=== PATIENT | male | born 1955 | race Caucasian/White ===

== ENCOUNTER 2024-11-03 12:36 | Emergency (ER) | payer OTHER, SELFPAY ==
[2024-11-03 12:38] VITALS: BP 98/70
[2024-11-03 13:27] LABS: % Basophils 1.5 % (0-2); % Eosinophils 2.7 % (0-6); % Immature Granulocytes 0.5 % (0-0.5); % Lymphocytes 20.9 % (20.5-51.1); % Monocytes 10.2 % (1.7-9.3); % Neutrophils 64.2 % (42.2-75.2); Absolute Basophils 0.1 10^3/uL (0-0.2); Absolute Eosinophils 0.2 10^3/uL (0-0.7); Absolute Lymphocytes 1.7 10^3/uL (1.2-3.4); Absolute Monocytes 0.8 10^3/uL (0.1-0.6); Absolute Neutrophils 5.3 10^3/uL (1.4-6.5); Hematocrit 29.8 % (39.0-52.0); Hemoglobin 9.9 g/dL (13.0-18.0); Mean Corp Hgb Conc. 33.2 g/dL (33.0-37.0); Mean Corpuscular Hgb 31.8 pg (27.0-31.0); Mean Corpuscular Volume 95.8 fL (80.0-94.0); Mean Platelet Volume 9.5 fL (7.4-10.4); Nucleated Red Blood Cells % 0 % (-); Platelet Count 247 10^3/uL (130-400); Red Blood Cell Count 3.11 10^6/uL (4.70-6.10); Red Cell Dist. Width 14.8 % (11.5-14.5); White Blood Cell Count 8.2 10^3/uL (4.8-10.8)
[2024-11-03 13:38] LABS: Urine Albumin 3+ (Neg - Trace); Urine Bilirubin Negative (Negative); Urine Character Bloody (Clear); Urine Color Red; Urine Glucose Negative (Negative); Urine Ketone Negative (Negative); Urine Leukocyte Negative (Negative); Urine Nitrite Negative (Negative); Urine Occult Blood 3+ (Negative); Urine Urobilinogen Negative (Neg - 1+); Urine pH 6.5 (5.0-9.0)
[2024-11-03 13:56] LABS: Urine Squamous Cell 0-2 /LPF (Few)
[2024-11-03 13:57] LABS: Urine Bacteria Moderate (Negative); Urine Red Blood Cell >100 /HPF (0-2)
[2024-11-03 14:23] LABS: PT 12.6 Sec (11.4-14.6)
[2024-11-03 14:32] LABS: Blood Urea Nitrogen 17 mg/dl (9-20); Calcium 9.3 mg/dl (8.4-10.2); Carbon Dioxide 22 mmol/L (22-30); Chloride 107 mmol/L (98-107); Glucose 65 mg/dl (70-99); Potassium 4.8 mmol/L (3.5-5.1); Sodium 139 mmol/L (135-145); eGFR > 60.00
[2024-11-03 16:45] VITALS: BP 108/81
--- NOTE | 2024-11-03 17:12 | ED.GENMED ---
History of Present Illness
General
Chief Complaint: Male Genito-Urinary Symptoms
Source: patient
Exam Limitations: none
Time Seen by Provider: 11/03/24 16:27
Nursing documentation reviewed up to this point in time: agreed with
History of Present Illness
History of Present Illness:
69-year-old male past medical history of A-fib currently on Eliquis, hypertension, diabetes presenting to the emergency department today with concerns of red discolored blood with intermittent blood clots over the past 2 days stopped his Eliquis 2
days ago. He claims that he takes it for atrial fibrillation but is paroxysmal and currently is not in A-fib after ablation in the past. Denies any pain any abdominal pain any flank pain any fevers nausea vomiting
Past History
Past History
ED Past Medical History: Arrthythmia (Atrial fib), HTN and IDDM
ED Past Surgical History: Bowel resection
Social History
Tobacco: Smoker
Alcohol: None
Drug: None
Personal:
Living: alone
Review of Systems
Review of Systems
Allergies reviewed?: Yes
All Other Systems: ROS reviewed and negative except as documented in HPI and ROS
Phy Exam
Physical Exam
Physical Exam:
GENERAL: Alert , in no apparent distress
EYE: pupils equal and reactive
NECK: Supple, no significant adenopathy.
ENT: o/p clr, mmm.
CARDIAC: Regular rate and rhythm .
LUNGS: Clear breath sounds bilaterally, no acute respiratory distress, no wheezes/rales/rhonchi
ABDOMEN: Soft, without focal tenderness, no r/g, no cvat
NEUROLOGICAL: Alert and oriented, no focal neuro deficits
SKIN: Warm and dry, skin intact.
MUSCULOSKELETAL: No edema, well perfused.
PSYCH: Normal and appropriate interaction.
Course
Orders/Labs/Results
Orders:
Orders
11/03/24 12:48
Basic Metabolic Panel Urgent
Complete Blood Count/With Diff Urgent
Prothrombin Time Urgent
Urinalysis Reflex To Culture Urgent
Date Specimen was Collected: 11/03/24
Time Specimen was Collected: 12:42
Urine Microscopic Reflex Cult Urgent
Urine Culture Urgent
HARRISON Source: U
Specimen Description:
Obtained by: Random
Date Specimen was Collected: 11/03/24
Time Specimen was Collected: 12:42
11/03/24 17:11
Bladder Scan- Treatment ONCE
11/03/24 17:16
EKG [Electrocardiogram (*1)] Urgent
Reason for Study: Other
Other Reason for Exam: afib eval
EKG- Treatment ONCE
11/03/24 18:34
Troponin I Urgent
Abnormal Lab Results
11/03/24
12:48
RBC 3.11 L 10^6/uL
(4.70-6.10)
Hgb 9.9 L g/dL
(13.0-18.0)
Hct 29.8 L %
(39.0-52.0)
MCV 95.8 H fL
(80.0-94.0)
MCH 31.8 H pg
(27.0-31.0)
RDW 14.8 H %
(11.5-14.5)
Absolute Monos (auto) 0.8 H 10^3/uL
(0.1-0.6)
Monocytes % 10.2 H %
(1.7-9.3)
Glucose 65 L mg/dl
(70-99)
Ur Occult Blood Reflex 3+ A
(Negative)
Urine RBC >100 A /HPF
(0-2)
Urine Bacteria (Reflex) Moderate A
(Negative)
Urine Albumin (Reflex) 3+ A
(Neg - Trace)
11/03/24 12:48
11/03/24 12:48
Vital Signs
Initial and Last Documented VS:
Initial Vital Signs
Temp Pulse Resp BP Pulse Ox
98.1 F 74 18 98/70 100
11/03/24 12:38 11/03/24 12:38 11/03/24 12:38 11/03/24 12:38 11/03/24 12:38
Last Documented Vital Signs
Temp Pulse Resp BP Pulse Ox
97.8 F 79 18 91/74 97
11/03/24 18:40 11/03/24 18:40 11/03/24 16:45 11/03/24 18:40 11/03/24 18:40
MDM/Problems Addressed
MDM/Problems Addressed:
61-year-old male presenting to the emergency department today with concerns of blood blood clots in his urine. Denies pain denies additional symptoms does take Eliquis stopped this 2 days ago he takes Eliquis for A-fib denies being in A-fib for
extended period of time. His heart rate is very regular on physical examination. Otherwise hemoglobin of 9.9 previously has been in the tens and 11's but last blood work was over a year ago. Otherwise no evidence of urinary tract infection no
abdominal pain. Patient advised for close outpatient follow-up with urology. Return precautions given.
Patient did have an x-ray to confirm patient's not currently in atrial fibrillation. There was some changes from previous EKG but no obvious ischemic changes. He denies adamantly any chest pain shortness of breath or any symptoms potentially
consistent with cardiac issue at this time. Troponin was negative patient will follow-up closely with cardiology.
*Critical Care Note
Total Time (30-74mins, 75-104mins- exclusive of procedures): Not Applicable
ED Attending Note
-
Portions of this chart may have been created with voice recognition software.� Occasional wrong word or��sound alike� substitutions may have occurred due to the inherent limitations of voice recognition software.
Discharge Plan
Departure
Patient Disposition: Home (Routine Discharge)
Date of Disposition: 11/03/24
Time of Disposition: 18:14
Patient with high blood pressure during this ER visit?: No
Condition: Good
Covid-19: Not Applicable
Discharge Problem:
Hematuria, Nonspecific ST-T wave electrocardiographic changes
Instructions: Blood in the Urine (Hematuria), Adult (DC)
Prescriptions:
No Action
metoprolol tartrate 25 MG tablet
12.5 mg PO BID
Pepcid Complete 10-800-165 mg Tablet,Chewable
1 tab PO QPM
amoxicillin-pot clavulanate 875-125 mg Tablet
1 tab PO Q12 Qty: 15 0RF
Eliquis 5 mg Tablet
5 mg PO BID Qty: 0 0RF
insulin aspart U-100 [Novolog FlexPen U-100 Insulin] 100 unit/mL (3 mL) Insulin Pen
13 unit SC AC Qty: 15 0RF
insulin glargine [Lantus Solostar U-100 Insulin] 100 unit/mL (3 mL) insulin pen
32 unit SC HS Qty: 15 0RF
Referrals:
Marcus De La Garza MD [Active] - Follow up in 10 days
Jim Nickerson MD [Active] - Follow up in 5-7 days
Diann Bell PA-C [Family Provider] -
Activity Restrictions/Additional Instructions:
You came to the emergency department today with concerns of hematuria. Please follow-up closely with the urologist. Return to the emergency department any worsening, new or concerning symptoms.
Interventions
Interventions:
*Risk Screen - Suicide Last Done: 11/03/24 12:38
*General Assessment Last Done: 11/03/24 12:38
*Neglect/Abuse Screening Last Done: 11/03/24 12:42
*ED COVID-19 Vaccine History Last Done: 11/03/24 17:37
*Nursing Disposition Last Done: 11/03/24 19:11
ED-Male Genitourinary Assessment Last Done: 11/03/24 17:37
Discharge Date and Time
Discharge Date/Time: 11/03/24 19:12
Print Language: SINHALA
[2024-11-03 18:40] VITALS: BP 91/74
[2024-11-03 19:04] LABS: Troponin I < 0.012 ng/ml
== END 2024-11-03 19:12 | disposition home or self-care (01) ==
LOC: EMR 12:36
PROVIDERS: Emergency Medicine; Physician Assistant; EMERGENCY PHYSICIAN Emergency Medicine; FAMILY PHYSICIAN Physician Assistant Medical
DX: R31.9 Hematuria, unspecified (principal); R94.31 Abnormal electrocardiogram [ECG] [EKG]; I10 Essential (primary) hypertension; F17.200 Nicotine dependence, unspecified, uncomplicated; I48.91 Unspecified atrial fibrillation; E11.9 Type 2 diabetes mellitus without complications
CPT/HCPCS: 99284; 80048; 81003; 81015; 84484; 85025; 85610; 87077; 87086; 87186; 93005

== ENCOUNTER 2024-11-17 19:40 | Inpatient (IN) | payer OTHER, SELFPAY ==
[2024-11-17] VITALS (41 sets, daily range): BP systolic 67–105; BP diastolic 41–72
--- NOTE | 2024-11-17 13:54 | ED.GENMED ---
ED Provider Triage
<Navid Guardado PA-C - Last Filed: 11/17/24 13:55>
-
Patient seen by provider in Triage?: Seen in Triage
69-year-old male presents in referral from cardiac preadmission testing for cardioversion due on the 16 of this month. He notes generalized weakness. He was here at the end of October for UTI and hematuria. His blood pressures were low at
preadmission and he was sent in. He denies chest pain. Denies shortness of breath.
Patient was a calling from [facility]. His pressure over there was 70s over 50s systolic. Will start with labs EKG.
Seen by healthcare provider at triage. Warrants further assessment
History of Present Illness
<Navid Guardado PA-C - Last Filed: 11/17/24 13:55>
General
Chief Complaint: Blood Pressure Problem
Time Seen by Provider: 11/17/24 15:12
<Jessica Fairchild DO - Last Filed: 11/17/24 17:19>
History of Present Illness
History of Present Illness:
69-year-old male with history of A-fib on Eliquis presenting to the emergency department for concern of low blood pressure. Patient is scheduled to get an ablation next week by cardiology. He went for an appointment for preop today and was noted
to have low blood pressure, sent to the ER for further evaluation. He notes generalized fatigue and weakness. Denies chest pain or difficulty breathing. He is on metoprolol for rate control, however otherwise denies underlying high blood
pressure. Patient had laboratory analysis completed prior to my assessment, noted to have a hemoglobin of 6.0. Patient had been seen in 11/03 for hematuria, at that time his hemoglobin was 9.9, has been steadily downtrending over the past year.
He notes that hematuria has been an ongoing issue, is following with urology who believes that he has an infection, was started on Levaquin. He notes that he is still having hematuria. Denies any blood in his stool. Denies any history of
transfusions in the past. Denies additional acute medical complaints
Past History
<Navid Guardado PA-C - Last Filed: 11/17/24 13:55>
Past History
ED Past Medical History: Arrthythmia (Atrial fib), HTN and IDDM
ED Past Surgical History: Bowel resection
Social History
Tobacco: Smoker
Alcohol: None
Drug: None
Personal:
Living: alone
Phy Exam
<Jessica Fairchild DO - Last Filed: 11/17/24 17:19>
Physical Exam
Physical Exam:
General: Dry mucous membrane
HEENT: protecting airway
Neck: appears supple
CV: Normal heart rate, regular rhythm
Resp: No accessory muscle use, no increased work of breathing, lungs clear to auscultation bilaterally
Abd: Soft and non-distended, no tenderness to palpation
Extremities: No deformities, no swelling
Neuro: alert, no focal neurologic deficit
: deferred
Rectal: deferred
Psych: Normal affect
Skin: Intact
Course
<Navid Guardado PA-C - Last Filed: 11/17/24 13:55>
Orders/Labs/Results
Orders:
Orders
11/17/24 13:53
Electrocardiogram (*1) Urgent
Reason for Study: Shortness of Breath
EKG- Treatment ONCE
11/17/24 14:11
Complete Blood Count/With Diff Urgent
Comprehensive Metabolic Panel Urgent
NT-proBNP Urgent
11/17/24 14:57
Type+Screen Urgent
11/17/24 15:26
* Blood Bank Products Urgent
Blood Bank Products: *Packed RBC Leuko(PRBC's)
Quantity: 2
Transfuse Today: Yes
Reason: Anemia
Urinalysis Reflex To Culture Urgent
Abnormal Lab Results
11/17/24 11/17/24
14:11 14:57
RBC 1.90 L 10^6/uL
(4.70-6.10)
Hgb 6.0 L* g/dL
(13.0-18.0)
Hct 17.7 L* %
(39.0-52.0)
MCH 31.6 H pg
(27.0-31.0)
Absolute Lymphs (auto) 0.9 L 10^3/uL
(1.2-3.4)
Neutrophils % 78.1 H %
(42.2-75.2)
Lymphocytes % 12.2 L %
(20.5-51.1)
BUN 22 H mg/dl
(9-20)
Glucose 236 H mg/dl
(70-99)
AST 16 L U/L
(17-59)
Total Protein 5.9 L g/dl
(6.3-8.2)
Crossmatch IS Only See Detail
11/17/24 14:11
11/17/24 14:11
Vital Signs
Initial and Last Documented VS:
Initial Vital Signs
Temp Pulse Resp BP Pulse Ox
98.3 F 83 18 75/50 100
11/17/24 13:49 11/17/24 13:49 11/17/24 13:49 11/17/24 13:49 11/17/24 13:49
Last Documented Vital Signs
Temp Pulse Resp BP Pulse Ox
98.7 F 86 18 78/57 100
11/17/24 16:41 11/17/24 16:41 11/17/24 16:41 11/17/24 16:41 11/17/24 16:00
<Jessica Fairchild DO - Last Filed: 11/17/24 17:19>
Orders/Labs/Results
Orders:
Orders
11/17/24 13:53
Electrocardiogram (*1) Urgent
Reason for Study: Shortness of Breath
EKG- Treatment ONCE
11/17/24 14:11
Complete Blood Count/With Diff Urgent
Comprehensive Metabolic Panel Urgent
NT-proBNP Urgent
11/17/24 14:57
Type+Screen Urgent
11/17/24 15:26
* Blood Bank Products Urgent
Blood Bank Products: *Packed RBC Leuko(PRBC's)
Quantity: 2
Transfuse Today: Yes
Reason: Anemia
Urinalysis Reflex To Culture Urgent
Abnormal Lab Results
11/17/24 11/17/24
14:11 14:57
RBC 1.90 L 10^6/uL
(4.70-6.10)
Hgb 6.0 L* g/dL
(13.0-18.0)
Hct 17.7 L* %
(39.0-52.0)
MCH 31.6 H pg
(27.0-31.0)
Absolute Lymphs (auto) 0.9 L 10^3/uL
(1.2-3.4)
Neutrophils % 78.1 H %
(42.2-75.2)
Lymphocytes % 12.2 L %
(20.5-51.1)
BUN 22 H mg/dl
(9-20)
Glucose 236 H mg/dl
(70-99)
AST 16 L U/L
(17-59)
Total Protein 5.9 L g/dl
(6.3-8.2)
Crossmatch IS Only See Detail
11/17/24 14:11
11/17/24 14:11
Vital Signs
Initial and Last Documented VS:
Initial Vital Signs
Temp Pulse Resp BP Pulse Ox
98.3 F 83 18 75/50 100
11/17/24 13:49 11/17/24 13:49 11/17/24 13:49 11/17/24 13:49 11/17/24 13:49
Last Documented Vital Signs
Temp Pulse Resp BP Pulse Ox
98.7 F 86 18 78/57 100
11/17/24 16:41 11/17/24 16:41 11/17/24 16:41 11/17/24 16:41 11/17/24 16:00
<Jessica Fairchild DO - Last Filed: 11/17/24 17:19>
MDM/Problems Addressed
MDM/Problems Addressed:
69-year-old male with history of A-fib on Eliquis presenting for low blood pressure and fatigue. Vital signs on arrival significant for hypotension.
On exam, patient is resting comfortably, no acute distress. He does have, with suspicion for volume depletion as etiology of hypotension. However, otherwise stable, alert and conversational. Patient's hemoglobin has dropped significantly from
11/03 at which time he was 9.9, now 6.0. Suspected from ongoing hematuria. Patient consented for transfusion. Will start transfusion, and IV fluids. Pending urinalysis with likely plan for urology consultation and admission
17:10 -patient urinated, loraine hematuria. Discussed with urology, recommending CBI with blood and urine cultures. Will obtain. Plan for admission
<Jessica Fairchild DO - Last Filed: 11/17/24 17:19>
*Critical Care Note
Total Time (30-74mins, 75-104mins- exclusive of procedures): 37
comment:
The high probability of a clinically significant, sudden or life threatening deterioration, hypotension with severe anemia, required my full and direct attention, intervention and personal management. The aggregate critical care time was 37 minutes.
This time is in addition to time spent performing reported procedures but includes the following:
[x] Data Review and interpretation
[x] Patient assessment and monitoring of vital signs
[x] Documentation
[x] Medication orders and management
ED Attending Note
<Navid Guardado PA-C - Last Filed: 11/17/24 13:55>
-
Portions of this chart may have been created with voice recognition software.� Occasional wrong word or��sound alike� substitutions may have occurred due to the inherent limitations of voice recognition software.
Discharge Plan
Departure
Prescriptions:
No Action
metoprolol tartrate 25 MG tablet
12.5 mg PO BID
Eliquis 5 mg Tablet
5 mg PO BID Qty: 0 0RF
insulin aspart U-100 [Novolog FlexPen U-100 Insulin] 100 unit/mL (3 mL) Insulin Pen
13 unit SC AC Qty: 15 0RF
insulin glargine [Lantus Solostar U-100 Insulin] 100 unit/mL (3 mL) insulin pen
32 unit SC HS Qty: 15 0RF
levofloxacin [Levaquin] 500 mg Tablet
500 mg PO DAILY
Referrals:
Diann Bell PA-C [Family Provider] -
Interventions
Interventions:
*Risk Screen - Suicide Last Done: 11/17/24 13:49
*General Assessment Last Done: 11/17/24 13:49
*Neglect/Abuse Screening Last Done: 11/17/24 13:49
*ED COVID-19 Vaccine History Last Done: 11/17/24 13:49
ED- Cardiac Assessment Last Done: 11/17/24 16:01
ED- Neurological Assessment Last Done: 11/17/24 16:01
ED- Pulmonary Assessment Last Done: 11/17/24 16:01
Discharge Date and Time
Print Language: THAI
[2024-11-17 14:48] LABS: ALT (SGPT) 16 U/L (0-50); AST (SGOT) 16 U/L (17-59); Albumin 3.7 g/dl (3.5-5.0); Alkaline Phosphatase 71 U/L (38-126); Blood Urea Nitrogen 22 mg/dl (9-20); Calcium 8.6 mg/dl (8.4-10.2); Carbon Dioxide 23 mmol/L (22-30); Chloride 102 mmol/L (98-107); Glucose 236 mg/dl (70-99); Potassium 4.5 mmol/L (3.5-5.1); Sodium 136 mmol/L (135-145); Total Bilirubin 0.3 mg/dl (0.2-1.3); Total Protein 5.9 g/dl (6.3-8.2); eGFR 59.84
[2024-11-17 14:51] LABS: % Basophils 1.1 % (0-2); % Immature Granulocytes 0.3 % (0-0.5); % Lymphocytes 12.2 % (20.5-51.1); % Monocytes 7.3 % (1.7-9.3); % Neutrophils 78.1 % (42.2-75.2); Absolute Basophils 0.1 10^3/uL (0-0.2); Absolute Eosinophils 0.1 10^3/uL (0-0.7); Absolute Lymphocytes 0.9 10^3/uL (1.2-3.4); Absolute Monocytes 0.5 10^3/uL (0.1-0.6); Absolute Neutrophils 5.8 10^3/uL (1.4-6.5); Hematocrit 17.7 % (39.0-52.0); Mean Corp Hgb Conc. 33.9 g/dL (33.0-37.0); Mean Corpuscular Hgb 31.6 pg (27.0-31.0); Mean Corpuscular Volume 93.2 fL (80.0-94.0); Mean Platelet Volume 9.7 fL (7.4-10.4); Nucleated Red Blood Cells % 0 % (-); Platelet Count 227 10^3/uL (130-400); Red Cell Dist. Width 14.5 % (11.5-14.5); White Blood Cell Count 7.4 10^3/uL (4.8-10.8)
[2024-11-17 14:56] LABS: NT-proBNP 130 pg/ml
[2024-11-17 17:51] LABS: Urine Albumin 3+ (Neg - Trace); Urine Bilirubin 1+ (Negative); Urine Character Bloody (Clear); Urine Color Red; Urine Glucose Negative (Negative); Urine Ketone Trace (Negative); Urine Leukocyte Negative (Negative); Urine Nitrite Negative (Negative); Urine Occult Blood 4+ (Negative); Urine Specific Gravity 1.015 (<1.030); Urine Urobilinogen Negative (Neg - 1+); Urine pH 6.5 (5.0-9.0)
[2024-11-17 18:07] LABS: Urine Red Blood Cell >100 /HPF (0-2)
--- NOTE | 2024-11-17 18:13 | W.PN.URO.CBU ---
Today's Communication / Plan
-
keep cbi hand irrigate prn clots
Assessment / Plan
-
hematuia on eliquis will see if can hold eliquois will transfuse and inf blleding subsides willstop cbi in long run need ct scan and ctsto to detremoine etiology of hematuria
Diagnosis
-
Date of Service: November 17, 2024
-
Patient Diagnosis:gross hematuir a of undiagnosed eytiology has a fib and awaithng testing but hgb dropped to 6.6 from 9 and hypotensive cbi started no clots but eliqus today no dysuria frequecty vcx neg
Post Op Day:
Subjective
-
fatigue hematuria
Objective
-
Vital Signs
Temp Pulse Resp BP Pulse Ox
98.7 F 83 30 92/61 98
11/17/24 16:41 11/17/24 17:45 11/17/24 17:00 11/17/24 17:45 11/17/24 17:45
Intake and Output
11/16/24 11/17/24 11/18/24
06:59 06:59 06:59
Intake Total 0 / 0
Balance 0 / 0
Intake:
Blood Product Amount Infused ( 0 / 0
mL)
Packed Rbc Leukoreduced Unit 0 / 0
[id number]
Laboratory Results
11/17/24 14:11
11/17/24 14:11
Review of Systems
-
Constitutional: Fatigue
: Bleeding
Physical Exam
-
General - well developed, well nourished, no acute distress
Chest - clear bilaterally
Abdomen - soft, non-tender, positive bowel sounds, no CVAT, no incisional pain or distention
Genitalia - normal
Rectal - normal
Skin - warm & dry with no rash
Neuro - AOx3, no motor deficits
Extremities - no clubbing, no cyanosis, no edema
Incision - clean, dry
Dressing - clean, dry, intact
Care Review
Data Reviewed
Discussed with: Hospitalist and Nursing
[2024-11-17] MEDS: NSS 1000 IV ×2 (18:50→18:56)
--- NOTE | 2024-11-17 19:00 | W.PN.HOSP.TC ---
Today's Communication/Plan
-
IVF, blood
Assessment / Plan
Assessment / Plan
Gross Hematuria
onset hematuria 10/31, becoming progressively worse past 3 days
Anemia
most likely from hematuria
Weakness and dizziness from acute blood loss anemia
Atrial Fibrillation
was to have ablation with Dr. Carvajal in near future. Pt's superintendent transportation is Eren
Possible UTI on Levaquin
Hypotensive
IV NS given, 2 units of blood will be given
P: admit IMU
IVF, blood to be given
cardio and Urology consults
Full code
See dictated note
Anticipated Discharge: > 48 hours
Subjective/Interval History
-
Date of Service: November 17, 2024
Feels weak and dizzy
Objective Data
-
Labs:
Laboratory Results
11/17/24
14:11
WBC 7.4
Hgb 6.0 L*
Hct 17.7 L*
Plt Count 227
Sodium 136
Potassium 4.5
Chloride 102
Carbon Dioxide 23
BUN 22 H
Creatinine 1.3
Glucose 236 H
Calcium 8.6
Total Bilirubin 0.3
AST 16 L
ALT 16
Alkaline Phosphatase 71
Vital Signs:
Vital Signs
Temp Pulse Resp BP Pulse Ox
98.5 F 79 18 70/51 98
11/17/24 18:29 11/17/24 18:29 11/17/24 18:29 11/17/24 18:29 11/17/24 17:45
I&O
11/16/24 11/17/24 11/18/24
06:59 06:59 06:59
Intake Total 250 / 250
Balance 250 / 250
Review of Systems
-
History Source: Patient and Coordinated Provider
Constitutional: Denies Fever
EENT: Reports No Symptoms Reported
Respiratory: Reports No Symptoms
Cardiac: Reports No Symptoms; Denies Chest Pain
Genitourinary: Reports Bleeding
Neuro: Reports Dizzy and Weakness
Physical Exam
-
General: Well Developed, Well Nourished and No Apparent Distress
HEENT: Normocephalic, Atraumatic and Moist Mucous Membranes
Respiratory: Clear to Auscultation; Negative Wheezes, Rales or Rhonchi
Cardiac: Regular Rhythm and S1/S2
GI: Soft, Nontender and Nondistended
Musculoskeletal: No Clubbing, No Cyanosis and No Edema
Neuro: Awake, Alert and Oriented
[2024-11-18] VITALS (49 sets, daily range): BP systolic 60–131; BP diastolic 48–92; BMI 27.9
[2024-11-18 06:56] LABS: Blood Urea Nitrogen 16 mg/dl (9-20); Calcium 7.7 mg/dl (8.4-10.2); Carbon Dioxide 22 mmol/L (22-30); Chloride 107 mmol/L (98-107); Estimated Creatinine Clearance 78 ml/min; Glucose 141 mg/dl (70-99); Potassium 4.3 mmol/L (3.5-5.1); Sodium 136 mmol/L (135-145); eGFR > 60.00
[2024-11-18 07:42] LABS: Hematocrit 22.3 % (39.0-52.0); Hemoglobin 7.4 g/dL (13.0-18.0); Mean Corp Hgb Conc. 33.2 g/dL (33.0-37.0); Mean Corpuscular Hgb 31.1 pg (27.0-31.0); Mean Corpuscular Volume 93.7 fL (80.0-94.0); Mean Platelet Volume 9.9 fL (7.4-10.4); Platelet Count 207 10^3/uL (130-400); Red Blood Cell Count 2.38 10^6/uL (4.70-6.10); Red Cell Dist. Width 14.9 % (11.5-14.5); White Blood Cell Count 9.1 10^3/uL (4.8-10.8)
--- NOTE | 2024-11-18 07:42 | EDRN ---
Urology and Cardiology consults notified this am.
--- NOTE | 2024-11-18 07:44 | EDRN ---
Dr. Castillo TT's about diet order to start at dinner today for clarification of order.
--- NOTE | 2024-11-18 07:45 | EDRN ---
Dr. Castillo wrote he is correct ing order.
--- NOTE | 2024-11-18 07:50 | W.PN.HOSP.TC ---
Today's Communication/Plan
-
transfuse 1 more unit
check Fe studies
check stool for C.Diff
Assessment / Plan
Assessment / Plan
Gross Hematuria
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
Anemia
most likely from hematuria. Was given 2 units PRBC Hgb 6.0-->7.4
will order 1 more unit
Weakness and dizziness from acute blood loss anemia
Atrial Fibrillation
was to have ablation with Dr. Carvajal in near future. Pt's launderer hand is Eren. Tele appears to be NSR
Possible UTI on Levaquin
Hypotensive
IV NS given, 2 units of blood will be given
IDDM
continue standing Lantus, but change ac insulin to SSI
Diarrhea
stool for C.Diff ordered
P: admit IMU
IV to continue, will order another unit of blood to be given
cardio and Urology consults
Full code
Anticipated Discharge: > 48 hours
Subjective/Interval History
-
Date of Service: November 18, 2024
Generally feels better, having liquidy diarrhea
Objective Data
-
Labs:
Laboratory Results
11/18/24
06:01
WBC 9.1
Hgb 7.4 L D
Hct 22.3 L
Plt Count 207
Sodium 136
Potassium 4.3
Chloride 107
Carbon Dioxide 22
BUN 16
Creatinine 1.0
Glucose 141 H
Calcium 7.7 L
Vital Signs:
Vital Signs
Temp Pulse Resp BP Pulse Ox
98.4 F 81 22 84/67 95
11/18/24 04:18 11/18/24 07:00 11/18/24 06:15 11/18/24 07:00 11/18/24 07:00
I&O
11/17/24 11/18/24 11/19/24
06:59 06:59 06:59
Intake Total 6000 / 6000
Output Total 87543 / 55388
Balance -4600 / -4600
Review of Systems
-
History Source: Patient and Coordinated Provider
Constitutional: Denies Fever
EENT: Reports Other (nasal congestion)
Respiratory: Reports No Symptoms
Cardiac: Reports No Symptoms; Denies Chest Pain
Abdomen/GI: Reports Diarrhea
Genitourinary: Reports Bleeding
Neuro: Reports Dizzy and Weakness
Physical Exam
-
General: Well Developed, Well Nourished and No Apparent Distress
HEENT: Normocephalic, Atraumatic and Moist Mucous Membranes
Respiratory: Clear to Auscultation; Negative Wheezes, Rales or Rhonchi
Cardiac: Regular Rhythm and S1/S2
GI: Soft, Nontender and Nondistended
Musculoskeletal: No Clubbing, No Cyanosis and No Edema
Neuro: Awake, Alert and Oriented
[2024-11-18] MEDS: NSS 1000 IV ×2 (08:15→14:16)
[2024-11-18 08:28] LABS: Iron 35 ug/dl (49-181)
[2024-11-18] MEDS: LEVAQUIN 500 MG PO (08:28)
[2024-11-18 08:34] LABS: Glucose - Point of Care 174 mg/dl (70-99)
[2024-11-18] MEDS: LOPRESSOR PO ×2 (08:34→20:09)
[2024-11-18 08:37] LABS: Percent Saturation 9 % (20-50); Total Iron Binding Capacity 377 ug/dl (261-462)
[2024-11-18 09:03] LABS: Ferritin 17.3 ng/ml (17.9-464.0)
[2024-11-18] MEDS: NOVOLOG FLEXPEN-MODERATE RESISTANCE 1 UNITS SC ×2 (09:16→14:17)
[2024-11-18 09:34] LABS: Folate 5.2 ng/ml (2.76-20); Vitamin B12 830 pg/ml (239-931)
--- NOTE | 2024-11-18 10:15 | EDRN ---
Pt ate 100% of his diet tray.
--- NOTE | 2024-11-18 10:57 | EDRN ---
Unit # [id number] started at 10:40. Had to use pink sheet as product # would not scan.
--- NOTE | 2024-11-18 11:25 | EDRN ---
Blood bank notified that product # would not scan and using pink sheet to infuse the blood.
--- NOTE | 2024-11-18 12:13 | W.PN.URO.CBU ---
Today's Communication / Plan
-
hand irrigae prn clots ir sluggish flow
Assessment / Plan
-
hematuia on eliquis will see if can hold eliquois will transfuse and inf blleding subsides willstop cbi in long run need ct scan and ctsto to detremoine etiology of hematuria
Diagnosis
-
Date of Service: November 18, 2024
-
Patient Diagnosis:
Post Op Day:
Patient Diagnosis:gross hematuir a of undiagnosed eytiology has a fib and awaithng testing but hgb dropped to 6.6 from 9 and hypotensive cbi started no clots but eliqus today no dysuria frequecty vcx neg
Post Op Day:
Subjective
-
still hematuria
Objective
-
Vital Signs
Temp Pulse Resp BP Pulse Ox
99 F 84 20 87/65 95
11/18/24 10:55 11/18/24 10:55 11/18/24 10:55 11/18/24 10:55 11/18/24 10:55
Intake and Output
11/17/24 11/18/24 11/19/24
06:59 06:59 06:59
Intake Total 6000 / 6000
Output Total 88886 / 60571 300 / 300
Balance -4600 / -4600 -300 / -300
Intake:
IV fluids (Total) 1000 / 1000
NSS 1000 / 1000
Amount instilled into Urinary 4500 / 4500
Drain (Total)
Blood Product Amount Infused ( 500 / 500
mL)
Packed Rbc Leukoreduced Unit 250 / 250
[id number]
Packed Rbc Leukoreduced Unit 250 / 250
[id number]
Output:
Urinary Drain Output (Total) 3800 / 3800
True Urine Output from CBI 6800 / 6800 300 / 300
Laboratory Results
11/18/24 06:01
Review of Systems
-
: Bleeding
Physical Exam
-
General - well developed, well nourished, no acute distress
Chest - clear bilaterally
Abdomen - soft, non-tender, positive bowel sounds, no CVAT, no incisional pain or distention
Genitalia - normal
Rectal - normal
Skin - warm & dry with no rash
Neuro - AOx3, no motor deficits
Extremities - no clubbing, no cyanosis, no edema
Incision - clean, dry
Dressing - clean, dry, intact
Care Review
Data Reviewed
Discussed with: Cardiology and Hospitalist
--- NOTE | 2024-11-18 12:37 | EDRN ---
Attempting to call report to IMU at this time.
--- NOTE | 2024-11-18 12:39 | EDRN ---
RN who will be caring for pt unable to take verbal report. Sending written report at this time per Hilaria who had answered the phone and said she will call me w/ any questions.
--- NOTE | 2024-11-18 13:30 | EDRN ---
Sifuentes emptied at this time of 1550 of untrue urine (urine + CBI) and IMU called w/ message left for RN at this time. Pt also removed from bedpan and had very loose brown yellow BM on bedpan. Pericare given and skin barrier to buttocks.
--- NOTE | 2024-11-18 13:31 | W.PN.CD ---
Today's Communication / Plan
-
Dictated
Hold Eliquis
Resume Eliquis when OK with urology
Not clear we have EKG/tele documentation of AFib/flutter recurrence since ablation, but pt felt he was in AFib Nov 14, 2024
Impression / Plan
-
Severe Anemia from acute blood loss/bleeding
Pathologic severe hematuria
Hx of persistent AFib and AFlutter
- Ablation 06/24/2020
- Suspected recurrence and was planned to have MARCELO/DCCV
- Only sinus so far
- [id number] is at least 4 (DM, HTN, age1, vascular disease)
HTN
DM, type 2
Carotid vascular disease/subclavian stenosis
Subjective:
No CP or palps
Data:
Echo 06/07/2023: LVEF 65-70%, AoV sclerosis, Asc Ao 3.9 cm
Felicia Nuc Stress 06/2019: Small/medium area of mild/mod fixed defects inf and apical most c/w soft tissue attenuation
.
Physical Exam
Vital Signs/Labs
Vital Signs
Temp Pulse Resp BP Pulse Ox
98.7 F 76 16 109/64 98
11/18/24 12:45 11/18/24 12:45 11/18/24 12:45 11/18/24 12:45 11/18/24 12:45
11/17/24 11/18/24 11/19/24
06:59 06:59 06:59
Actual Weight 92 kg
11/18/24 06:01
11/17/24
14:11
[id number] Pept 130
Data Reviewed
-
Date of Service: November 18, 2024
[2024-11-18 13:44] LABS: Glucose - Point of Care 193 mg/dl (70-99)
[2024-11-18 16:45] LABS: Hematocrit 23.9 % (39.0-52.0); Hemoglobin 7.9 g/dL (13.0-18.0)
[2024-11-18 17:49] LABS: Glucose - Point of Care 200 mg/dl (70-99)
--- NOTE | 2024-11-18 18:16 | PTCARENOTE ---
Received into [id number] at 1400. IMU monitors placed, SR on tele VS documented. CBI infusing red thin punch colored urine few clots noted. Denies any pain. Meal covered with Novolog. IVF infusing. AAOx3, LC, CHG bathed. Left ear and RCW skin CA
areas will note in wound care. Large full thickness wound area on left mid back. Oriented to room. No other needs made known.
[2024-11-18] MEDS: NOVOLOG FLEXPEN-MODERATE RESISTANCE 3 UNITS SC (18:59)
[2024-11-18 21:44] LABS: Glucose - Point of Care 162 mg/dl (70-99)
[2024-11-18] MEDS: LANTUS 0.32 UNITS SC (21:44)
--- NOTE | 2024-11-18 22:33 | PTCARENOTE ---
Report received from previous shift RN 1845. Pt in bed, AAO3, no complaints offered. Pt is [place], hearing aid in place. Denies pain. Pt reports oc nonproductive cough, denies SOB, pox 97-99% on room air, lung sounds are decreased throughout. Telemetry
rhythm reveals SR, HR 80's, no edema noted, palpable peripheral pulses present, knee high SCDs placed per order. +BS, abdomen soft nontender, reports good appetite, tolerating 1800 ADA diet. Pt has chronic loose stools, using bedpan intermittently.
3-way Sifuentes catheter in place with CBI infusing, punch colored urine with some small clots. Skin as documented. L hand int flushed and patent, capped. R FA int with IVF per order. Safe environment maintained, call frankel within reach. Will monitor
closely.
[2024-11-19] VITALS (35 sets, daily range): BP systolic 74–121; BP diastolic 59–94; BMI 28.1
[2024-11-19] MEDS: NSS 1000 IV ×3 (02:08→21:25)
[2024-11-19 05:24] LABS: Hemoglobin 7.7 g/dL (13.0-18.0); Mean Corp Hgb Conc. 33.5 g/dL (33.0-37.0); Mean Corpuscular Hgb 30.6 pg (27.0-31.0); Mean Corpuscular Volume 91.3 fL (80.0-94.0); Mean Platelet Volume 9.5 fL (7.4-10.4); Platelet Count 197 10^3/uL (130-400); Red Blood Cell Count 2.52 10^6/uL (4.70-6.10); Red Cell Dist. Width 15.2 % (11.5-14.5); White Blood Cell Count 10.1 10^3/uL (4.8-10.8)
[2024-11-19 05:43] LABS: Blood Urea Nitrogen 13 mg/dl (9-20); Calcium 7.9 mg/dl (8.4-10.2); Carbon Dioxide 20 mmol/L (22-30); Chloride 107 mmol/L (98-107); Estimated Creatinine Clearance 71 ml/min; Glucose 121 mg/dl (70-99); Sodium 134 mmol/L (135-145); eGFR > 60.00
[2024-11-19 08:23] LABS: Glucose - Point of Care 146 mg/dl (70-99)
[2024-11-19] MEDS: LEVAQUIN 500 MG PO (09:11)
[2024-11-19] MEDS: NOVOLOG FLEXPEN-MODERATE RESISTANCE SC ×3 (09:11→18:21)
[2024-11-19] MEDS: LOPRESSOR 12.5 MG PO (09:11)
--- NOTE | 2024-11-19 09:37 | CM ---
Patient with reyes and CBI for hematuria, who is s/p transfusions for anemia. Room air. Receiving IVF, PO Abx. Per MD notes 11/18: Weakness and dizziness from acute blood loss anemia. PT/OT Evals pending.
Met with patient who resides alone in a 1st floor apartment, no steps.
He was independent in ADLs and ambulation, active and working.
He denies any falls at home.
DME - glucometer, BP cuff
[facility]
PCP - Diann Bell
Pharmacy - [facility] [place]
Patient would benefit from PT Eval---> message to Dr Castillo.
Plan follow up after seen by PT/OT.
[2024-11-19 10:43] LABS: Glycohemoglobin (HgbA1c) 5.4 % (4.0-5.6)
--- NOTE | 2024-11-19 11:15 | W.PN.CD ---
Today's Communication / Plan
-
Hold Eliquis
Resume Eliquis when OK with urology
Still in sinus
Impression / Plan
-
Severe anemia from acute blood loss/bleeding
- So far 3 U PRBC have been transfused
Pathologic severe hematuria
- Urology involved
Hx of persistent AFib and AFlutter
- Ablation 06/24/2020
- Suspected recurrence and was planned to have MARCELO/DCCV
- Only sinus so far
- [id number] is at least 4 (DM, HTN, age1, vascular disease)
HTN
DM, type 2
Carotid vascular disease/subclavian stenosis
Subjective:
No CP or palps
Data:
Echo 06/07/2023: LVEF 65-70%, AoV sclerosis, Asc Ao 3.9 cm
Felicia Nuc Stress 06/2019: Small/medium area of mild/mod fixed defects inf and apical most c/w soft tissue attenuation
.
Physical Exam
Vital Signs/Labs
Vital Signs
Temp Pulse Resp BP Pulse Ox
97.8 F 85 20 121/72 99
11/19/24 07:45 11/19/24 08:01 11/19/24 08:01 11/19/24 08:01 11/19/24 08:01
11/18/24 11/19/24 11/20/24
06:59 06:59 06:59
Actual Weight 92 kg 86.4 kg
11/19/24 04:56
11/19/24 04:56
11/17/24
14:11
Cai-F-Hlvfwwhadnt Pept 130
Physical Exam
Constitutional: No acute distress
EENT: Anicteric
Cardiovascular: Rhythm & rate is regular
Respiratory: Respiratory effort normal
GI: Distention absent
Data Reviewed
-
Date of Service: November 19, 2024
[2024-11-19 12:07] LABS: Glucose - Point of Care 141 mg/dl (70-99)
--- NOTE | 2024-11-19 12:32 | W.PN.URO.CBU ---
Today's Communication / Plan
-
KEEP FIOLEY HAND IRRIGATE PRN CLOTS OR SLOW FLOW
Assessment / Plan
-
hematuia SLOWING DOWN HGB STABLE ALEJANDRO REEVALUATE BUT ONCE RBXC STOP WILL REMOVE HE AMND ATTEMPT CT SCAN TO SEE ETIOLOGU OF FBLEEDING IE BPH UTI OR BLADDER CANCER EYTC
Diagnosis
-
Date of Service: November 19, 2024
-
Patient Diagnosis:
Post Op Day:
Patient Diagnosis:
Post Op Day:
Patient Diagnosis:gross hematuir a of undiagnosed eytiology has a fib and awaithng testing but hgb dropped to 6.6 from 9 and hypotensive cbi started no clots but eliqus today no dysuria frequecty vcx neg
Post Op Day:
Subjective
-
STILL FATIGUED
Objective
-
Vital Signs
Temp Pulse Resp BP Pulse Ox
97.8 F 73 16 86/74 97
11/19/24 07:45 11/19/24 11:13 11/19/24 11:13 11/19/24 11:13 11/19/24 11:26
Intake and Output
11/18/24 11/19/24 11/20/24
06:59 06:59 06:59
Intake Total 6000 / 6000 1520 / 1520
Output Total 69841 / 52735 3075 / 3075
Balance -4600 / -4600 -1555 / -1555
Intake:
Oral fluids 240 / 240
IV fluids (Total) 1000 / 1000 1280 / 1280
NSS 1000 / 1000
Amount instilled into Urinary 4500 / 4500
Drain (Total)
Blood Product Amount Infused ( 500 / 500
mL)
Packed Rbc Leukoreduced Unit 250 / 250
[id number]
Packed Rbc Leukoreduced Unit 250 / 250
[id number]
Output:
Urinary Drain Output (Total) 3800 / 3800
True Urine Output from CBI 6800 / 6800 3075 / 3075
Other:
Number of unmeasured liquid
stools
Rectum 1 1
Laboratory Results
11/19/24 04:56
11/19/24 04:56
Review of Systems
-
: Bleeding
Physical Exam
-
General - well developed, well nourished, no acute distress
Chest - clear bilaterally
Abdomen - soft, non-tender, positive bowel sounds, no CVAT, no incisional pain or distention
Genitalia - normal
Rectal - normal
Skin - warm & dry with no rash
Neuro - AOx3, no motor deficits
Extremities - no clubbing, no cyanosis, no edema
Incision - clean, dry
Dressing - clean, dry, intact
Care Review
Data Reviewed
Discussed with: Hospitalist and Nursing
[2024-11-19] MEDS: FERRLECIT 110 MG IV (14:21)
--- NOTE | 2024-11-19 15:26 | W.PN.HOSP.TC ---
Today's Communication/Plan
-
transfuse 1 unit
continue IV NS
Levophed if BP drifts down <90 systolic
Assessment / Plan
Assessment / Plan
Gross Hematuria
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 Eliquis remains on hold. once bleeding stops will require urologic evaluation as to etiology. ?infectious
Anemia
most likely from hematuria. Was given 2 units PRBC Hgb 6.0-->7.4
will order 1 more unit Hgb 7.7-->will order 4th unit
Weakness and dizziness from acute blood loss anemia
Atrial Fibrillation
was to have a MARCELO cardioversion with Dr. Carvajal in near future. Pt's certified green building engineer is Eren. Tele demonstrates to be NSR. Input from cardio appreciated. He had a catheter ablation June 2020.
Possible UTI on Levaquin
On 11/03 Ur micro demonstrated Enterococcus sens to Levaquin
Blood Cx 11/17 NTD
Hypotensive
IV NS given, 3 units of blood has been given, will order 1 unit to be given now 11/19. Will order Levophed if bp drops below 90 sys to be given. Reviewed with nursing
IDDM
continue standing Lantus, but change ac insulin to SSI
glu has been well controlled at 141-200 since admission
a1c 5.4%
Diarrhea
stool for C.Diff negative, concern as pt has been on abx, only had one episode of diarrhea today
P: admit IMU
cardio and Urology consults noted and appreciated
Full code
Anticipated Discharge: > 48 hours
Subjective/Interval History
-
Date of Service: November 19, 2024
Awake, alert
Objective Data
-
Labs:
Laboratory Results
11/19/24
04:56
WBC 10.1
Hgb 7.7 L
Hct 23.0 L
Plt Count 197
Sodium 134 L
Potassium 4.0
Chloride 107
Carbon Dioxide 20 L
BUN 13
Creatinine 1.0
Glucose 121 H
Calcium 7.9 L
Vital Signs:
Vital Signs
Temp Pulse Resp BP Pulse Ox
98.5 F 71 17 78/60 96
11/19/24 12:20 11/19/24 14:00 11/19/24 14:00 11/19/24 14:00 11/19/24 14:00
I&O
11/18/24 11/19/24 11/20/24
06:59 06:59 06:59
Intake Total 6000 / 6000 1520 / 1520
Output Total 92364 / 34464 3075 / 3075
Balance -4600 / -4600 -1555 / -1555
Review of Systems
-
History Source: Patient and Coordinated Provider
Constitutional: Denies Fever
EENT: Reports Other (nasal congestion)
Respiratory: Reports No Symptoms
Cardiac: Reports No Symptoms; Denies Chest Pain
Abdomen/GI: Reports Diarrhea
Genitourinary: Reports Bleeding (still with gross hematuria)
Neuro: Reports Dizzy and Weakness
Physical Exam
-
General: Well Developed, Well Nourished and No Apparent Distress
HEENT: Normocephalic, Atraumatic and Moist Mucous Membranes
Respiratory: Clear to Auscultation; Negative Wheezes, Rales or Rhonchi
Cardiac: Regular Rhythm and S1/S2
GI: Soft, Nontender and Nondistended
Genito-urinary: No Costovertebral Tender
Musculoskeletal: No Clubbing, No Cyanosis and No Edema
Skin: Warm, Dry and Rash
Neuro: Awake, Alert and Oriented
--- NOTE | 2024-11-19 17:29 | PTCARENOTE ---
Patient continues on CBI BAG # 14, urine punch colored with clots. Hand irrigated multiple times due to clots. Blood pressures soft today. Levo ordered this afternoon if SBP less then 90. Patient currently getting 1 unit of PRBC's. Patient AAOx3
pleasant. Using call frankel appropriately. Patient had to loose BM's on bedpan today.
[2024-11-19 18:04] LABS: Glucose - Point of Care 127 mg/dl (70-99)
--- NOTE | 2024-11-19 18:39 | PTCARENOTE ---
Patient received one unit PRBC's without incident. Vital signs stable ( see work list).
[2024-11-19] MEDS: LOPRESSOR PO (20:23)
[2024-11-19] MEDS: LANTUS 0.32 UNITS SC (21:22)
[2024-11-19 21:33] LABS: Glucose - Point of Care 166 mg/dl (70-99)
--- NOTE | 2024-11-19 21:34 | PTCARENOTE ---
Pt continues with CBI through 3-way indwelling catheter draining punch colored to red output with visible clots. Upon receiving pt, this RN noticed that reyes bag was not clamped closed and urine was draining onto the floor, so output for bag # 15
will not be accurate. Pt is able to alert this RN that he feels pressure in his genital area and has noticed that the urine flow is slowing or stopped, prompting this RN to hand irrigate catheter producing some small blood clots. Draining resumed
post irrigation. This RN will continue to monitor throughout shift with assist of pt's report of discomfort. Call frankel within reach. HS lopressor held d/t admin parameters. VSS at this time, but will continue to monitor closely throughout shift d/t
recent low BPs.
[2024-11-20] VITALS (63 sets, daily range): BP systolic 70–122; BP diastolic 47–79; BMI 27.7
--- NOTE | 2024-11-20 01:00 | PTCARENOTE ---
CBI continues with red punch colored drainage. Very small clots visible in tubing. Pt c/o feeling abdominal pressure and seeing the flow slow down which prompted this RN to hand irrigate per MD orders. Some very small clots removed, but flow is not
obstructed. Tubing reconnected and CBI flow rate adjusted. Catheter continues to produce red punch colored drainage. Pt intermittently c/o severe, sudden pain/discomfort in genital area, again asks this RN to hand irrigate catheter, however catheter
flow is intact and hand irrigation is not necessary at this time. CBI bag #16 with 3900ml total output, see documentation. UNDERWRITING SUPPORT MANAGER contacted regarding pt pain. Awaiting orders
[2024-11-20] MEDS: LEVOPHED 250 IV (01:01)
--- NOTE | 2024-11-20 01:14 | PTCARENOTE ---
levophed started per orders for SBP 70s.
[2024-11-20 04:22] LABS: % Eosinophils 3.4 % (0-6); % Immature Granulocytes 0.4 % (0-0.5); % Lymphocytes 13.6 % (20.5-51.1); % Monocytes 10.2 % (1.7-9.3); % Neutrophils 71.4 % (42.2-75.2); Absolute Basophils 0.1 10^3/uL (0-0.2); Absolute Eosinophils 0.4 10^3/uL (0-0.7); Absolute Immature Granulocytes 0.1 10^3/uL (0-0.05); Absolute Lymphocytes 1.5 10^3/uL (1.2-3.4); Absolute Monocytes 1.2 10^3/uL (0.1-0.6); Absolute Neutrophils 8.1 10^3/uL (1.4-6.5); Hematocrit 25.9 % (39.0-52.0); Hemoglobin 8.7 g/dL (13.0-18.0); Mean Corp Hgb Conc. 33.6 g/dL (33.0-37.0); Mean Corpuscular Hgb 30.3 pg (27.0-31.0); Mean Corpuscular Volume 90.2 fL (80.0-94.0); Mean Platelet Volume 9.9 fL (7.4-10.4); Nucleated Red Blood Cells % 0 % (-); Platelet Count 210 10^3/uL (130-400); Red Blood Cell Count 2.87 10^6/uL (4.70-6.10); Red Cell Dist. Width 14.7 % (11.5-14.5); White Blood Cell Count 11.3 10^3/uL (4.8-10.8)
[2024-11-20 04:45] LABS: Blood Urea Nitrogen 12 mg/dl (9-20); Calcium 7.8 mg/dl (8.4-10.2); Carbon Dioxide 18 mmol/L (22-30); Chloride 108 mmol/L (98-107); Estimated Creatinine Clearance 71 ml/min; Glucose 111 mg/dl (70-99); Sodium 136 mmol/L (135-145); eGFR > 60.00
[2024-11-20 07:44] LABS: Glucose - Point of Care 131 mg/dl (70-99)
--- NOTE | 2024-11-20 08:19 | PTCARENOTE ---
Assumed care of patient this AM. CBI bag #20-urine punch color with small clots. Order to hand irrigate PRN. Dr. Shaffer to see patient. Continue treatment as ordered. Levo drip started this morning for SPB less then 90. Levo currently at 1
mcg/3.7 mls/hr BP 92/68. Patient eating breakfast in bed. Reports not sleeping much last night. Denies feeling light headed or dizzy. Denies and pain or bladder discomfort at this time. Will continue to monitor frequently.
--- NOTE | 2024-11-20 11:08 | W.PN.CD ---
Today's Communication / Plan
-
Hold Eliquis
Resume Eliquis when OK with urology
Still in sinus
I suspect he will benefit from more PRBC transfusion
Impression / Plan
-
Severe anemia from acute blood loss/bleeding
- So far 3 =>4 U PRBC have been transfused
- Still with significant hematuria and BP below his low baseline at times => more blood will be beneficial in light of active bleeding
Pathologic severe hematuria
- Urology involved
Hx of persistent AFib and AFlutter
- Ablation 06/24/2020
- Suspected recurrence and was planned to have MARCELO/DCCV
- Only sinus so far
- [id number] is at least 4 (DM, HTN, age1, vascular disease)
HTN
DM, type 2
Carotid vascular disease/subclavian stenosis
Subjective:
No CP or palps
Data:
Echo 06/07/2023: LVEF 65-70%, AoV sclerosis, Asc Ao 3.9 cm
Felicia Nuc Stress 06/2019: Small/medium area of mild/mod fixed defects inf and apical most c/w soft tissue attenuation
.
Physical Exam
Vital Signs/Labs
Vital Signs
Temp Pulse Resp BP Pulse Ox
98.1 F 67 18 92/68 96
11/20/24 07:05 11/20/24 08:00 11/20/24 08:00 11/20/24 08:00 11/20/24 08:15
11/19/24 11/20/24 11/21/24
06:59 06:59 06:59
Actual Weight 86.4 kg 85 kg
11/20/24 03:53
11/20/24 03:53
11/17/24
14:11
Qrb-Z-Hgwczxrzkmn Pept 130
Physical Exam
Constitutional: No acute distress
Cardiovascular: Rhythm & rate is regular and Pedal edema is absent
Respiratory: Respiratory effort normal and Lungs clear to auscul.
GI: Soft and Distention absent
Neuro/Psych: AO x 3
Data Reviewed
-
Date of Service: November 20, 2024
--- NOTE | 2024-11-20 11:12 | W.PN.UPDATE ---
Addendum entered and electronically signed by Jim Nickerson MD 11/20/24 12:40:
CT Urogram reviewed => indicative of large 6 cm collection of organized clot and suspected bladder tumor.
Eliquis held x72 hrs.
Tentative plan for OR 11/22 for TURBT pending further washout of Eliquis, continued CBI to further reduce hematuria, and PRBC transfusions prn.
D/w Hospitalist.
Original Note:
Update Note
Progress Note Update
Gross hematuria
Acute blood loss anemia
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
Cystoscopy was scheduled but cancelled 1 week ago by patient.
Hgb 6.0 on presentation w/ hypotension.
Eliquis held x72 hrs.
s/p 5u PRBCs (unit 5 being given today).
Still hypotensive w/o pressor requirement.
Sifuentes catheter draining bloody urine w/o clots or obstruction.
Plan:
- Maintain CBI to keep urine flowing and light
- Continue holding Eliquis to extend washout period
- Transfuse as needed per Hospitalist
- CT imaging w/ IV contrast when stable
- If hematuria does not improve w/n 24 hrs, may require cystoscopy/fulguration/possible TURBT
Discussed plan of care w/ Hospitalist.
[2024-11-20] MEDS: NOVOLOG FLEXPEN-MODERATE RESISTANCE SC ×2 (11:41→14:18)
[2024-11-20] MEDS: LOPRESSOR PO ×2 (11:43→19:31)
--- NOTE | 2024-11-20 12:42 | W.PN.URO.CBU ---
Today's Communication / Plan
-
alex reeval in op room once hemodynamically stable
Assessment / Plan
-
hematuia SLOWING DOWN HGB STABLE has bladder mass will await utntil stable then team will do turbt
Diagnosis
-
Date of Service: November 20, 2024
-
Patient Diagnosis:
Post Op Day:
Patient Diagnosis:
Post Op Day:
Patient Diagnosis:
Post Op Day:
Patient Diagnosis:gross hematuir a of undiagnosed eytiology has a fib and awaithng testing but hgb dropped to 6.6 from 9 and hypotensive cbi started no clots but eliqus today no dysuria frequecty vcx neg
Post Op Day:
Subjective
-
continued hematuiora
Objective
-
Vital Signs
Temp Pulse Resp BP Pulse Ox
98.1 F 81 12 87/66 94
11/20/24 11:23 11/20/24 11:30 11/20/24 11:30 11/20/24 11:30 11/20/24 11:30
Intake and Output
11/19/24 11/20/24 11/21/24
06:59 06:59 06:59
Intake Total 1520 / 1520 2650 / 2650
Output Total 3075 / 3075 2225 / 222 400 / 400
Balance -1555 / -1555 425 / 425 -400 / -400
Intake:
Oral fluids 240 / 240 1200 / 1200
IV fluids (Total) 1280 / 1280 1200 / 1200
Blood Product Amount Infused ( 250 / 250
mL)
Packed Rbc Leukoreduced Unit 250 / 250
[id number]
Output:
True Urine Output from CBI 3075 / 3075 2225 / 2225 400 / 400
Other:
Number of unmeasured liquid
stools
Rectum 1 1
Laboratory Results
11/20/24 03:53
11/20/24 03:53
Review of Systems
-
: Bleeding
Physical Exam
-
General - well developed, well nourished, no acute distress
Chest - clear bilaterally
Abdomen - soft, non-tender, positive bowel sounds, no CVAT, no incisional pain or distention
Genitalia - normal
Rectal - normal
Skin - warm & dry with no rash
Neuro - AOx3, no motor deficits
Extremities - no clubbing, no cyanosis, no edema
Incision - clean, dry
Dressing - clean, dry, intact
Care Review
Data Reviewed
Discussed with: Hospitalist and Nursing
CT Scan: Image Pers Reviewed
[2024-11-20] MEDS: LEVAQUIN 500 MG PO (12:46)
[2024-11-20] MEDS: FERRLECIT 110 MG IV (12:48)
[2024-11-20] MEDS: FLUSH (NSS) 1 FLUSH IV (12:49)
[2024-11-20 13:30] LABS: Glucose - Point of Care 131 mg/dl (70-99)
--- NOTE | 2024-11-20 14:21 | PTCARENOTE ---
Patient currently receiving one unit PRBC's as per MD order. Hemoglobin this AM 8.8. CBI running at a fast rate bag #20. Bloody urine with small clots. Patient experiencing intermittent bladder spasms. Patient continuing with loose/liquid stools
x2 today. Multiple stools overnight. Levo drip is currently infusing at 3mcg/11.3 mls/hr to keep SBP >90. SR on monitor HR 70-90. sP02 96% RA. Diet resumed for lunch. Patient to be NPO at midnight as per Dr. Rizzo. Call frankel in reach.
--- NOTE | 2024-11-20 14:46 | W.PN.HOSP.TC ---
Today's Communication/Plan
-
Assessment / Plan
Assessment / Plan
NAD
Scleral Anicteric
MMM
No JVD
CTABL
RRR, S1/S2
Soft, NT, ND, BS+
CBI light red urine
Warm, Dry
AAOx3
Calm
Gross Hematuria
-S/p CBI
-Eliquis held
-CT urogram ordered
-Discussed with urology, pending CT urogram findings likely will go to the OR in the next 24 to 48 hours
Hemorrhagic shock
-Acute blood loss anemia precipitating this shock
-On Levophed titrate as tolerated
-Keep MAP greater than 65
-Keep hemoglobin greater than 7 however if actively bleeding would continue to transfuse
-Consult hematology
Anemia�normocytic
-In the setting of hematuria
-Transfuse for hemoglobin less than 7 or actively bleeding/symptomatic anemia
Atrial Fibrillation
was to have a MARCELO cardioversion with Dr. Carvajal in near future. Pt's gate person is Eren. Tele demonstrates to be NSR. Input from cardio appreciated. He had a catheter ablation June 2020.
Possible UTI on Levaquin
On 11/03 Ur micro demonstrated Enterococcus sens to Levaquin
Blood Cx 11/17 NTD
Hypotensive
IV NS given, 3 units of blood has been given, will order 1 unit to be given now 11/19. Will order Levophed if bp drops below 90 sys to be given. Reviewed with nursing
IDDM
continue standing Lantus, but change ac insulin to SSI
glu has been well controlled at 141-200 since admission
a1c 5.4%
Diarrhea
stool for C.Diff negative, concern as pt has been on abx, only had one episode of diarrhea today
P: admit IMU
cardio and Urology consults noted and appreciated
Full code
Anticipated Discharge: > 48 hours
Subjective/Interval History
-
Date of Service: November 20, 2024
Seen and examined no new complaints no acute overnight events per
Objective Data
-
Labs:
Laboratory Results
11/20/24
03:53
WBC 11.3 H
Hgb 8.7 L
Hct 25.9 L
Plt Count 210
Sodium 136
Potassium 4.0
Chloride 108 H
Carbon Dioxide 18 L
BUN 12
Creatinine 1.0
Glucose 111 H
Calcium 7.8 L
Vital Signs:
Vital Signs
Temp Pulse Resp BP Pulse Ox
97.7 F 80 16 92/67 96
11/20/24 14:38 11/20/24 14:38 11/20/24 14:38 11/20/24 14:38 11/20/24 14:00
I&O
11/19/24 11/20/24 11/21/24
06:59 06:59 06:59
Intake Total 1520 / 1520 2650 / 2650 250 / 250
Output Total 3075 / 3075 2225 / 2225 400 / 400
Balance -1555 / -1555 425 / 425 -150 / -150
[2024-11-20 17:19] LABS: Glucose - Point of Care 209 mg/dl (70-99)
[2024-11-20] MEDS: NOVOLOG FLEXPEN-MODERATE RESISTANCE 3 UNITS SC (17:37)
[2024-11-20 18:31] LABS: Fibrinogen 475 MG/DL (199-459); INR 1.08; PT 14.3 Sec (11.4-14.6)
[2024-11-20 18:32] LABS: APTT 35.4 Sec (23.4-35.0)
[2024-11-20] MEDS: LANTUS 0.32 UNITS SC (21:57)
[2024-11-20 22:09] LABS: Glucose - Point of Care 177 mg/dl (70-99)
--- NOTE | 2024-11-20 22:19 | PTCARENOTE ---
Rec'd pt on 4mcg levo BPs stable at this time. This RN will titrate per protocol, currently 3mcg, BP 106/67. Pt denies new complaints. Pt with frequent liquid stools. Hygiene care performed. CBI maintained #23 hanging now, continues with red punch
colored output, see worklist documentation. Call frankel within reach.
[2024-11-20] MEDS: NSS IV (22:37)
[2024-11-20] MEDS: NSS 1000 IV (22:39)
--- NOTE | 2024-11-20 22:54 | CON.ONC ---
Impression
Impression
Hematuria
Hypotension requiring pressor
Bladder mass versus clot
Plan
Plan
Coags ordered and resulted showing no evidence of coagulopathy.
Should not have any residual effect from Eliquis at this point.
Tranexamic acid contraindicated in setting of urinary bleeding. Additionally, patient has atrial fibrillation and is at risk of stroke with anticoagulation on hold. Use of tranexamic acid does increase the risk of thromboembolic complications.
If brisk bleeding continues, intravesical tranexamic acid, 500 mg, would be an option.
Plan is noted for OR later this week for possible bladder tumor.
Thank you for consultation, we will follow along with you.
Patient History
History of Present Illness
69-year-old man with medical history of atrial fibrillation on Eliquis, hypertension and diabetes. He was seen in the ER on November 03 for hematuria which was attributed to urinary tract infection and treated with Levaquin. His hemoglobin was 9.9
when seen on November 03. The hematuria continued. Patient indicated also that it had been present before the acute presentation. He presented back to the ER on November 17 with hypotension, generalized fatigue and weakness. Found to have a
hemoglobin of 6.0. Sifuentes placed and has been on CBI. There was concern about bleeding and we were consulted regarding possible use of tranexamic acid or other intervention to get the bleeding under control. Last dose of Eliquis was November 16 or
. Of note, patient underwent a CT of the abdomen and pelvis this morning which showed possible bladder wall mass. Plan is for cystoscopy later this week. Since admission, patient has required 4 units of blood. Most recent hemoglobin 8.7.
Past-Medical/Surgical History
PAST MEDICAL HISTORY:
Atrial fibrillation.
Essential hypertension.
Insulin-dependent type 2 diabetes
SURGICAL HISTORY:
Bowel resection in 2019 for a perforation
FAMILY HISTORY:
Unremarkable
SOCIAL HISTORY:
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
Lives alone, sister is personal companion
Quit smoking 20 years ago
Denies alcohol
Patient Medication
�Medication �Instructions �Recorded �Confirmed �Last Taken �Type
metoprolol tartrate 25 mg tablet 12.5 mg PO BID Heart 06/24/20 11/17/24 06/24/20 06:00 History
Disease/Condition
apixaban 5 mg tablet (Eliquis) 5 mg PO BID #0 tabs 06/14/23 11/17/24 Unknown Rx
insulin aspart U-100 100 unit/mL 13 unit (0.13 mL) SC AC #15 mL 06/14/23 11/17/24 Unknown Rx
(3 mL) subcutaneous pen (Novolog
FlexPen U-100 Insulin aspart)
insulin glargine 100 unit/mL (3 32 unit (0.32 mL) SC HS #15 mL 06/14/23 11/17/24 Unknown Rx
mL) subcutaneous pen (Lantus
Solostar U-100 Insulin)
levofloxacin 500 mg tablet 500 mg PO DAILY 11/17/24 11/17/24 Unknown History
Active Medications
Generic Name Dose Route Start Last Admin
Trade Name Freq PRN Reason Stop Dose Admin
Bisacodyl 10 mg 11/18/24 04:11
Bisacodyl 10 Mg Rectal Suppository RECTAL 12/16/24 04:10
[id number] PRN
constipation
Diazepam 2 mg 11/20/24 02:19
Diazepam 10 Mg/2 Ml Inj IV 12/18/24 02:18
Q6HPRN PRN
bladder spasm
Insulin Glargine 32 units/ 0.32 mls @ 0 mls/hr 11/18/24 22:00 11/20/24 21:57
Device SC 12/16/24 21:59 0.32 mls
HS RINKU Administration
As Directed
Sodium Chloride 1,000 mls @ 80 mls/hr 11/18/24 08:15 11/20/24 22:39
Nss IV 1,000 mls
.[id number] RINKU Administration
Ferric Sodium Gluconate 110 mls @ 110 mls/hr 11/19/24 14:00 11/20/24 12:48
Complex 125 mg/ Sodium IV 11/23/24 14:59 110 mls
Chloride DAILY@1400 RINKU Administration
Norepinephrine Bitartrate 4 mg in 250 mls @ 0 mls/hr 11/19/24 15:30 11/20/24 01:01
Levophed IV 250 mls
PER PROTOCOL RINKU Administration
Protocol
Per Protocol
Insulin Aspart 0 units 11/18/24 07:30 11/20/24 17:37
Insulin Aspart Moderate Resistance 300 Units/3 Ml Pen.Injctr SC 12/16/24 07:29 3 units
AC RINKU Administration
Protocol
Levofloxacin 500 mg 11/18/24 08:00 11/20/24 12:46
Levofloxacin 500 Mg Tablet PO 500 mg
DAILY RINKU Administration
Metoprolol Tartrate 12.5 mg 11/18/24 08:00 11/20/24 19:31
Metoprolol 12.5 Mg Regular Release Dose (1/2 Of 25 Mg Tablet) PO 12/16/24 07:59 Not Given
BID RINKU
Oxybutynin Chloride 5 mg 11/20/24 16:43
Oxybutynin 5 Mg Tablet PO 12/18/24 16:42
BIDPRN PRN
bladder spasms
Polyethylene Glycol 17 grams 11/18/24 04:11
Polyethylene Glycol Powder 17 Grams Packet PO 12/16/24 04:10
DAILYPRN PRN
constipation
Senna/Docusate Sodium 1 tablet 11/18/24 04:11
Docusate W/Senna (Dipti-Colace) Tablet PO 12/16/24 04:10
BIDPRN PRN
constipation
Sodium Chloride 0 flush 11/18/24 05:00 11/20/24 12:49
Sodium Chloride 0.9% (Flush) Syringe IV 12/16/24 04:59 1 flush
PER PROTOCOL RINKU Administration
Review of Systems
-
History Source: Patient and Records
All Other Systems: Reviewed and Negative
Physical Exam
-
General: Well Developed and Well Nourished
HEENT: Moist Mucous Membranes; Negative Jaundice
Cardiology: Normal Sinus Rhythm, S1 and S2
Pulmonary: Clear
GI: Soft
Genito-Urinary: Other (Sifuentes draining punch-colored urine)
Musculoskeletal: No Clubbing and No Cyanosis
Extremities: No C/C/E
Neurology: Non Focal
Skin: Warm and Dry
Hematologic / Lymphatic: No Lymphadenopathy
Psych: Intact Judgement/Insight
Labs
Lab Results
WBC 11.3 10^3/uL (4.8-10.8) H 11/20/24 03:53
RBC 2.87 10^6/uL (4.70-6.10) L 11/20/24 03:53
Hgb 8.7 g/dL (13.0-18.0) L 11/20/24 03:53
Hct 25.9 % (39.0-52.0) L 11/20/24 03:53
MCV 90.2 fL (80.0-94.0) 11/20/24 03:53
MCH 30.3 pg (27.0-31.0) 11/20/24 03:53
MCHC 33.6 g/dL (33.0-37.0) 11/20/24 03:53
RDW 14.7 % (11.5-14.5) H 11/20/24 03:53
Plt Count 210 10^3/uL (130-400) 11/20/24 03:53
MPV 9.9 fL (7.4-10.4) 11/20/24 03:53
Abs Immat Gran (auto) 0.1 10^3/uL (0-0.05) H 11/20/24 03:53
Absolute Neuts (auto) 8.1 10^3/uL (1.4-6.5) H 11/20/24 03:53
Absolute Lymphs (auto) 1.5 10^3/uL (1.2-3.4) 11/20/24 03:53
Absolute Monos (auto) 1.2 10^3/uL (0.1-0.6) H 11/20/24 03:53
Absolute Eos (auto) 0.4 10^3/uL (0-0.7) 11/20/24 03:53
Absolute Basos (auto) 0.1 10^3/uL (0-0.2) 11/20/24 03:53
Immature Gran % 0.4 % (0-0.5) 11/20/24 03:53
Neutrophils % 71.4 % (42.2-75.2) 11/20/24 03:53
Lymphocytes % 13.6 % (20.5-51.1) L 11/20/24 03:53
Monocytes % 10.2 % (1.7-9.3) H 11/20/24 03:53
Eosinophils % 3.4 % (0-6) 11/20/24 03:53
Basophils % 1.0 % (0-2) 11/20/24 03:53
Creatinine 1.0 mg/dL (0.7-1.3) 11/20/24 03:53
Vital Signs
Vital Signs
Temp Pulse Resp BP Pulse Ox
98.4 F 75 16 106/67 95
11/20/24 20:20 11/20/24 22:00 11/20/24 22:00 11/20/24 22:00 11/20/24 21:30
[2024-11-21] VITALS (51 sets, daily range): BP systolic 71–127; BP diastolic 32–96; PULSE 77–83; O2SAT 95–96; BMI 27.8
[2024-11-21] MEDS: LEVOPHED 250 IV ×2 (00:35→20:33)
[2024-11-21] MEDS: DITROPAN 5 MG PO ×2 (01:12→19:06)
[2024-11-21 04:09] LABS: Hematocrit 28.5 % (39.0-52.0); Hemoglobin 9.7 g/dL (13.0-18.0); Mean Corpuscular Hgb 29.8 pg (27.0-31.0); Mean Corpuscular Volume 87.4 fL (80.0-94.0); Mean Platelet Volume 9.8 fL (7.4-10.4); Platelet Count 212 10^3/uL (130-400); Red Blood Cell Count 3.26 10^6/uL (4.70-6.10); Red Cell Dist. Width 15.4 % (11.5-14.5)
[2024-11-21 04:33] LABS: Blood Urea Nitrogen 12 mg/dl (9-20); Calcium 8.4 mg/dl (8.4-10.2); Carbon Dioxide 18 mmol/L (22-30); Chloride 106 mmol/L (98-107); Estimated Creatinine Clearance 71 ml/min; Glucose 152 mg/dl (70-99); Potassium 4.1 mmol/L (3.5-5.1); Sodium 135 mmol/L (135-145); eGFR > 60.00
[2024-11-21] MEDS: LOPRESSOR PO ×2 (07:56→19:20)
[2024-11-21] MEDS: NOVOLOG FLEXPEN-MODERATE RESISTANCE 1 UNITS SC ×3 (07:57→16:40)
[2024-11-21] MEDS: LEVAQUIN 500 MG PO (07:57)
[2024-11-21 08:02] LABS: Glucose - Point of Care 175 mg/dl (70-99)
--- NOTE | 2024-11-21 08:32 | PN.CDI ---
CDI
- -
CDI:
Physician Documentation Request
Admit Date: 11/17/24 19:40
Dear Doctor Matthias,
Clinical Indicators:
Patient admitted with gross hematuria/acute blood loss anemia.
11/20 (14:21) RN note,'Patient continuing with loose/liquid stools x2 today. Multiple stools overnight.'
CO2 levels:
11/19/24 11/20/24
04:56 03:53
Carbon Dioxide 20 L 18 L
Based on the above, could you clarify in the progress notes, the appropriate diagnosis, if significant, that supports the above abnormalities and additional evaluation, monitoring and/or treatment rendered:
Metabolic acidosis
Abnormal lab values, clinically insignificant
Other
Use of terms such as suspected, likely, concern for, or probable (associated with a specific diagnosis that is being evaluated, monitored, or treated as if it exists) are acceptable and can be coded in the inpatient setting, when documented at the
time of discharge.
Thank you,
Suzie Pinto RN BSN
CDI Specialist
available via tiger text
Please use your independent medical judgment in providing your response.
--- NOTE | 2024-11-21 08:37 | PN.CDI ---
CDI
- -
CDI:
Physician Documentation Request
Admit Date: 11/17/24 19:40
Dear Doctor Matthias,
Clinical Indicators:
Patient admitted with gross hematuria/acute blood loss anemia.
Home medications include: Eliquis 5 mg b.i.d.
11/20 PN, 'Gross Hematuria...-Eliquis held'
11/20 Urology PN, 'hematuia SLOWING DOWN ...'
Please clarify the likely relationship between the hematuria and Eliquis use:
Yes, hematuria is related to/associated with/exacerbated by Eliquis use
No, hematuria is not related to/associated with/exacerbated by Eliquis use but it is due to ___. (Please specify)
Unable to determine
Use of terms such as suspected, likely, concern for, or probable (associated with a specific diagnosis that is being evaluated, monitored, or treated as if it exists) are acceptable and can be coded in the inpatient setting, when documented at the
time of discharge.
Thank you,
Suzie Pinto RN BSN
CDI Specialist
available via tiger text
Please use your independent medical judgment in providing your response.
--- NOTE | 2024-11-21 09:27 | PTCARENOTE ---
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 Patient resting comfortably in bed. AAO, VSS. No events noted overnight. No complaints of pain at this time although there is intermittent bladder pain. CBI running at this time, reddish/punch colored with
occasional clots. Remains on Levo @ 3mcg for SBP >90. No tests scheduled at this time but is scheduled for TURP 11/22. Call frankel in reach.
--- NOTE | 2024-11-21 09:51 | W.PN.CD ---
Today's Communication / Plan
-
Hold Eliquis
Resume Eliquis when OK with urology
Still in sinus
OK for needed urologic procedure at low cardiac risk
Impression / Plan
-
Severe anemia from acute blood loss/bleeding
- So far 5 U PRBC have been transfused
- Still with hematuria
BP is at baseline now in the mid 90s
Pathologic severe hematuria
- Urology involved
Hx of persistent AFib and AFlutter
- Ablation 06/24/2020
- Suspected recurrence and was planned to have MARCELO/DCCV
- Only sinus so far
- [id number] is at least 4 (DM, HTN, age1, vascular disease)
HTN
DM, type 2
Carotid vascular disease/subclavian stenosis
Subjective:
No CP or palps
Data:
Echo 06/07/2023: LVEF 65-70%, AoV sclerosis, Asc Ao 3.9 cm
Felicia Nuc Stress 06/2019: Small/medium area of mild/mod fixed defects inf and apical most c/w soft tissue attenuation
.
Physical Exam
Vital Signs/Labs
Vital Signs
Temp Pulse Resp BP Pulse Ox
98 F 72 15 96/74 94
11/21/24 07:05 11/21/24 09:00 11/21/24 09:00 11/21/24 09:00 11/21/24 09:03
11/20/24 11/21/24 11/22/24
06:59 06:59 06:59
Actual Weight 85 kg 85.3 kg
11/21/24 03:56
11/21/24 03:56
PT 14.3 Sec (11.4-14.6) 11/20/24 18:07
INR 1.08 11/20/24 18:07
APTT 35.4 Sec (23.4-35.0) H 11/20/24 18:07
11/17/24
14:11
Udd-T-Feuzcyzvtqy Pept 130
Physical Exam
Constitutional: No acute distress
Cardiovascular: Rhythm & rate is regular and Pedal edema is absent
Respiratory: Respiratory effort normal and Lungs clear to auscul.
GI: Soft and Distention absent
Neuro/Psych: AO x 3
Data Reviewed
-
Date of Service: November 21, 2024
--- NOTE | 2024-11-21 10:22 | W.PN.URO.CBU ---
Today's Communication / Plan
-
NPO@MN for OR 11/22
To OR in afternoon 11/22 for cystoscopy/clot evacuation/TURBT
Continue holding Eliquis
Appreciate preop clearance by Cardiology (low risk)
Trend H/H
Continue CBI to maintain urine light-colored (medium flow rate minimum advised x24 hrs)
D/w Hospitalist.
D/w patient.
Assessment / Plan
-
Gross hematuria
Acute blood loss anemia
Bladder tumor and clots
CT Urogram w/ ~6 cm bladder tumor from right bladder wall in addition to suspected organized clot burden.
Bilateral kidneys and ureters normal.
Diagnosis
-
Date of Service: November 21, 2024
-
Patient Diagnosis:
Gross hematuria
Acute blood loss anemia
Bladder tumor/clot on CT imaging
Subjective
-
Hematuria, albeit improved (aqueous), continues.
Occasional bladder spasms - started on oxybutynin 11/20.
Sifuentes catheter draining well on CBI.
Objective
-
Vital Signs
Temp Pulse Resp BP Pulse Ox
98 F 72 15 96/74 94
11/21/24 07:05 11/21/24 09:00 11/21/24 09:00 11/21/24 09:00 11/21/24 09:03
Intake and Output
11/20/24 11/21/24 11/22/24
06:59 06:59 06:59
Intake Total 2650 / 2650 1815 / 1815
Output Total 2225 / 2225 3100 / 3100
Balance 425 / 425 -1285 / -1285
Intake:
Oral fluids 1200 / 1200 875 / 875
IV fluids (Total) 1200 / 1200 480 / 480
IV piggybacks 210 / 210
Blood Product Amount Infused ( 250 / 250 250 / 250
mL)
Packed Rbc Leukoreduced Unit 250 / 250
[id number]
Packed Rbc Leukoreduced Unit 250 / 250
[id number]
Output:
True Urine Output from CBI 2225 / 2225 3100 / 3100
Other:
Number of unmeasured liquid
stools
Rectum 1
Laboratory Results
11/21/24 03:56
11/21/24 03:56
Physical Exam
-
General - well developed, well nourished, no acute distress
Abdomen - soft, non-tender, non-distended
Genitalia - normal, 3-way catheter w/ dark hematuria w/o clots (aqueous)
Skin - warm & dry with no rash
Neuro - AOx3, no motor deficits
Extremities - no clubbing, no cyanosis, no edema
Care Review
Data Reviewed
Discussed with: Hospitalist and Nursing
CT Scan: Report Pers Reviewed and Image Pers Reviewed
Total Time Spent with Patient (in minutes): 35
[2024-11-21] MEDS: NSS 1000 IV ×2 (11:40→23:43)
[2024-11-21 12:02] LABS: Glucose - Point of Care 182 mg/dl (70-99)
--- NOTE | 2024-11-21 14:17 | W.PN.HOSP.TC ---
Today's Communication/Plan
-
Planning for OR with urology tomorrow n.p.o. after midnight
Assessment / Plan
Assessment / Plan
NAD
Scleral Anicteric
MMM
No JVD
CTABL
RRR, S1/S2
Soft, NT, ND, BS+
CBI light red urine
Warm, Dry
AAOx3
Calm
Gross Hematuria
-S/p CBI
-Eliquis held
-CT urogram ordered
-Discussed with urology, pending CT urogram findings likely will go to the OR in the next 24 to 48 hours
Hemorrhagic shock
-Acute blood loss anemia precipitating this shock
-On Levophed titrate as tolerated
-Keep MAP greater than 65
-Keep hemoglobin greater than 7 however if actively bleeding would continue to transfuse
-Consult hematology
Anemia�normocytic
-In the setting of hematuria
-Transfuse for hemoglobin less than 7 or actively bleeding/symptomatic anemia
Atrial Fibrillation
was to have a MARCELO cardioversion with Dr. Carvajal in near future. Pt's core extruder is Eren. Tele demonstrates to be NSR. Input from cardio appreciated. He had a catheter ablation June 2020.
Possible UTI on Levaquin
On 11/03 Ur micro demonstrated Enterococcus sens to Levaquin
Blood Cx 11/17 NTD
Hypotensive
IV NS given, 3 units of blood has been given, will order 1 unit to be given now 11/19. Will order Levophed if bp drops below 90 sys to be given. Reviewed with nursing
IDDM
continue standing Lantus, but change ac insulin to SSI
glu has been well controlled at 141-200 since admission
a1c 5.4%
Diarrhea
stool for C.Diff negative, concern as pt has been on abx, only had one episode of diarrhea today
P: admit IMU
cardio and Urology consults noted and appreciated
Full code
Anticipated Discharge: > 48 hours
Subjective/Interval History
-
Date of Service: November 21, 2024
Seen and examined. No new complaints. No acute overnight events.
Objective Data
-
Labs:
Laboratory Results
11/21/24
03:56
WBC 12.0 H
Hgb 9.7 L
Hct 28.5 L
Plt Count 212
Sodium 135
Potassium 4.1
Chloride 106
Carbon Dioxide 18 L
BUN 12
Creatinine 1.0
Glucose 152 H
Calcium 8.4
Vital Signs:
Vital Signs
Temp Pulse Resp BP Pulse Ox
98 F 72 15 96/74 94
11/21/24 07:05 11/21/24 09:00 11/21/24 09:00 11/21/24 09:00 11/21/24 09:03
I&O
11/20/24 11/21/24 11/22/24
06:59 06:59 06:59
Intake Total 2650 / 2650 1815 / 1815
Output Total 2225 / 2225 3100 / 3100
Balance 425 / 425 -1285 / -1285
[2024-11-21] MEDS: FERRLECIT 110 MG IV (14:56)
[2024-11-21 16:33] LABS: Glucose - Point of Care 191 mg/dl (70-99)
[2024-11-21 21:19] LABS: Glucose - Point of Care 233 mg/dl (70-99)
[2024-11-21] MEDS: LANTUS 0.32 UNITS SC (21:51)
[2024-11-22] VITALS (45 sets, daily range): BP systolic 69–149; BP diastolic 31–108; BMI 26.7
--- NOTE | 2024-11-22 00:37 | PTCARENOTE ---
CBI maintained, continues to drain red punch colored output, see worklist documentation. Levophed maintained, see titrations in worklist. Assessment as documented. PRN medication given for bladder spasms. Hand irrigation performed once d/t pt report
of severe pain and urine coming out around catheter. Some small clots removed, but catheter flushing and draining well. Call frankel within reach.
[2024-11-22 06:59] LABS: Blood Urea Nitrogen 12 mg/dl (9-20); Calcium 8.2 mg/dl (8.4-10.2); Carbon Dioxide 16 mmol/L (22-30); Chloride 107 mmol/L (98-107); Estimated Creatinine Clearance 71 ml/min; Glucose 159 mg/dl (70-99); Sodium 134 mmol/L (135-145); eGFR > 60.00
[2024-11-22 07:37] LABS: Hematocrit 25.3 % (39.0-52.0); Hemoglobin 8.7 g/dL (13.0-18.0); Mean Corp Hgb Conc. 34.4 g/dL (33.0-37.0); Mean Corpuscular Hgb 29.6 pg (27.0-31.0); Mean Corpuscular Volume 86.1 fL (80.0-94.0); Mean Platelet Volume 10.4 fL (7.4-10.4); Platelet Count 129 10^3/uL (130-400); Red Blood Cell Count 2.94 10^6/uL (4.70-6.10); White Blood Cell Count 8.1 10^3/uL (4.8-10.8)
[2024-11-22] MEDS: LOPRESSOR PO ×2 (07:38→20:00)
[2024-11-22] MEDS: LEVAQUIN 500 MG PO (07:50)
[2024-11-22] MEDS: NOVOLOG FLEXPEN-MODERATE RESISTANCE 1 UNITS SC (07:54)
[2024-11-22 08:03] LABS: Glucose - Point of Care 180 mg/dl (70-99)
--- NOTE | 2024-11-22 08:43 | PTCARENOTE ---
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 Patient resting comfortably in bed. AAO, VSS. No events noted overnight. No complaints of pain at this time although there is intermittent bladder pain. Continuing CBI, remains reddish/punch colored with
occasional clots. Received on Levo @ 3mcg for SBP >90, will attempt to wean as tolerated. Scheduled for TURP today, NPO. Call frankel in reach.
--- NOTE | 2024-11-22 09:53 | W.SUR.PREOP ---
Pre-Operative Surgical Note
-
I have examined this patient prior to the performance of the scheduled procedure.
The patient's condition is unchanged from the time of the current History and
Physical and the patient is able to undergo the scheduled procedure.
Reviewed potential risks and complications of TURBT including but not limited to urosepsis, bleeding, ureteral/bladder injury, scar tissue formation, need for additional procedures/surgeries.
- Maintain NPO status
- To OR for cystoscopy/clot evacuation/TURBT
- IV Ancef 2g reception manager to OR
- Surgical consent to be signed in preop holding
- Hold Eliquis
- Cardiology clearance obtained
--- NOTE | 2024-11-22 10:31 | W.PN.CD ---
Today's Communication / Plan
-
Hold Eliquis
Resume Eliquis when OK with urology, no morris from our perspective
Still in sinus
OK for needed urologic procedure at low cardiac risk
Impression / Plan
-
Severe anemia from acute blood loss/bleeding
- So far 5 U PRBC have been transfused and Hgb now 8.7
- Less hematuria
BP is at baseline now in the mid 90s
Pathologic severe hematuria
- Urology involved
- For TURBT today
Hx of persistent AFib and AFlutter
- Ablation 06/24/2020
- Suspected recurrence and was planned to have MARCELO/DCCV, but no documented recurrence
- Only sinus so far
- [id number] is at least 4 (DM, HTN, age1, vascular disease)
HTN
DM, type 2
Carotid vascular disease/subclavian stenosis
Subjective:
No CP or palps
Data:
Echo 06/07/2023: LVEF 65-70%, AoV sclerosis, Asc Ao 3.9 cm
Felicia Nuc Stress 06/2019: Small/medium area of mild/mod fixed defects inf and apical most c/w soft tissue attenuation
.
Physical Exam
Vital Signs/Labs
Vital Signs
Temp Pulse Resp BP Pulse Ox
97.9 F 76 19 95/71 96
11/22/24 07:15 11/22/24 06:30 11/22/24 06:30 11/22/24 06:30 11/22/24 08:46
11/21/24 11/22/24 11/23/24
06:59 06:59 06:59
Actual Weight 85.3 kg 82 kg
11/22/24 05:55
11/22/24 05:55
PT 14.3 Sec (11.4-14.6) 11/20/24 18:07
INR 1.08 11/20/24 18:07
APTT 35.4 Sec (23.4-35.0) H 11/20/24 18:07
11/17/24
14:11
Llf-T-Drazmjzmrpz Pept 130
Physical Exam
Constitutional: No acute distress
Cardiovascular: Rhythm & rate is regular and Pedal edema is absent
Respiratory: Respiratory effort normal and Lungs clear to auscul.
GI: Soft and Distention absent
Neuro/Psych: AO x 3
Data Reviewed
-
Date of Service: November 22, 2024
--- NOTE | 2024-11-22 11:27 | WOUNDNOTE ---
LEFT MIDDLE LATERAL BACK
--- NOTE | 2024-11-22 11:29 | WOUNDNOTE ---
LEFT DORSAL FOOT
--- NOTE | 2024-11-22 11:29 | WOUNDNOTE ---
RIGHT SIDE CHEST
[2024-11-22] MEDS: NOVOLOG FLEXPEN-MODERATE RESISTANCE SC ×2 (11:31→16:45)
[2024-11-22] MEDS: NSS 1000 IV ×2 (11:31→21:38)
--- NOTE | 2024-11-22 11:35 | WOUNDNOTE ---
WON RN note: Patient admitted with hypotension and anemia.
See H&P for complete history. Lives by self.
PMH: IDDM, HTN, A Fib, bowel resection.
Wound Location and type/assessment: Patient admitted with: Large full thickness chronic ulcer on back from a accidental laceration. Base mostly pink, friable-easily bleeds, irregular border, does not appear infected. 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 Patient states he has had the wound for over a month and just won't heal. Has few scabbed abrasions on L dorsal foot and medial ankle, no drainage. Heels are intact, Sacrum/buttocks with mild MASD.
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 R chest with old skin cancer site that was removed, pale pink dry scar. Suspect back wound may have become a cancerous wound. Recommended to patient to have biopsy done of back wound when
goes for Moh's procedure or follow up with chief sustainability officer.
Appetite: Good.
Pressure redistribution devices in place: On Air mattress, can be on accumax is ad tom.
Plan: Silver alginate, folded gauze, folded ABD pad and medipore tape. Follow up with chief sustainability officer for biopsy.
Will confirm orders with hospitalist and updated nurse. Updated care plan and will follow as needed.
Note to case management of equipment requested for discharge: VN for wound care.
Recommend follow up at wound care center upon discharge or dermatology.
--- NOTE | 2024-11-22 11:36 | WOUNDNOTE ---
WON RN note: Patient admitted with hypotension and anemia.
See H&P for complete history. Lives by self.
PMH: IDDM, HTN, A Fib, bowel resection.
Wound Location and type/assessment: Patient admitted with: Large full thickness chronic ulcer on back from a accidental laceration. Base mostly pink, friable-easily bleeds, irregular border, does not appear infected. 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 Patient states he has had the wound for over a month and just won't heal. Has few scabbed abrasions on L dorsal foot and medial ankle, no drainage. Heels are intact, Sacrum/buttocks with mild MASD.
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 R chest with old skin cancer site that was removed, pale pink dry scar. Suspect back wound may have become a cancerous wound. Recommended to patient to have biopsy done of back wound when
goes for Moh's procedure or follow up with test and research reactor operator. Dr. Rizzo made aware of the above and agrees with plan.
Appetite: Good.
Pressure redistribution devices in place: On Air mattress, can be on accumax is ad tom.
Plan: Silver alginate, folded gauze, folded ABD pad and medipore tape. Follow up with test and research reactor operator for biopsy.
Will confirm orders with hospitalist and updated nurse. Updated care plan and will follow as needed.
Note to case management of equipment requested for discharge: VN for wound care.
Recommend follow up at wound care center upon discharge or dermatology.
[2024-11-22 11:49] LABS: Glucose - Point of Care 142 mg/dl (70-99)
--- NOTE | 2024-11-22 15:28 | W.PN.ONC2 ---
Today's Communication / Plan
-
daily CBC, transfuse prn
f/u cystoscopy/clot evacuation/TURBT
Impression
Impression
hemorrhagic shock
Hematuria. no evidence of coagulopathy
Bladder mass versus clot
Plan
Plan
DOAC on hold for hematuria
Tranexamic acid contraindicated in setting of urinary bleeding. Additionally, patient has atrial fibrillation and is at risk of stroke with anticoagulation on hold. Use of tranexamic acid does increase the risk of thromboembolic complications.
If brisk bleeding continues, intravesical tranexamic acid, 500 mg, would be an option.
Plan for cystoscopy/clot evacuation/TURBT today
Subjective/Objective
Subjective
continues with hematuria
denies pain
Vital Signs:
Vital Signs
Temp Pulse Resp BP Pulse Ox
97.9 F 73 17 89/54 96
11/22/24 07:15 11/22/24 12:30 11/22/24 12:30 11/22/24 12:30 11/22/24 12:30
Lab Results:
Laboratory Data
WBC 8.1 10^3/uL (4.8-10.8) 11/22/24 05:55
Hgb 8.7 g/dL (13.0-18.0) L 11/22/24 05:55
Plt Count 129 10^3/uL (130-400) L D 11/22/24 05:55
PT 14.3 Sec (11.4-14.6) 11/20/24 18:07
INR 1.08 11/20/24 18:07
APTT 35.4 Sec (23.4-35.0) H 11/20/24 18:07
eGFR > 60.00 11/22/24 05:55
Physical Exam
General: Well Developed and Well Nourished
HEENT: Moist Mucous Membranes; Negative Jaundice
Cardiology: Normal Sinus Rhythm, S1 and S2
Pulmonary: Clear
GI: Soft
Genito-Urinary: Sifuentes with hematuria
Extremities: No C/C/E
Neurology: Non Focal
Skin: Warm and Dry
--- NOTE | 2024-11-22 15:54 | W.IMMPOSTOP ---
Surgical Immed Post Op Note
-
Primary Surgeon: Liya
Pre-op Diagnosis: Gross hematuria, acute blood loss anemia, bladder tumor and clot
Post-op Diagnosis: Same, large papillary bladder tumor
Procedure Performed: cystoscopy, clot evacuation, TURBT (>7 cm resected)
Anesthesia Type: GETA
Specimen / Cultures: Bladder tumor/None
Estimated Blood Loss: 5 cc
Drains: 22Fr 3-way catheter (30 cc in balloon)
Complications: None
Operative Findings:
1. Large (>7 cm) broad-based bladder tumor encompassing near entirety of right lateral bladder wall.
2. Subtotal resection (>90% resected) performed due to broad base, operative time, and hypotension on Levophed under GETA.
3. Satisfactory hemostasis on final cystoscopy.
[2024-11-22 16:05] LABS: Glucose - Point of Care 166 mg/dl (70-99)
--- NOTE | 2024-11-22 16:08 | W.PN.HOSP.TC ---
Today's Communication/Plan
-
Assessment / Plan
Assessment / Plan
NAD
Scleral Anicteric
MMM
No JVD
CTABL
RRR, S1/S2
Soft, NT, ND, BS+
CBI hairston red urine
Warm, Dry
AAOx3
Calm
Gross Hematuria
-S/p CBI
-Eliquis held
-CT urogram ordered
-Discussed with urology, going to the OR with urology today for TURBT 11/22/2019
Hemorrhagic shock
-Acute blood loss anemia precipitating this shock
-On Levophed titrate as tolerated
-Keep MAP greater than 65
-Keep hemoglobin greater than 7 however if actively bleeding would continue to transfuse
-Hematology following
Anemia�normocytic
-In the setting of hematuria
-Transfuse for hemoglobin less than 7 or actively bleeding/symptomatic anemia
Atrial Fibrillation
was to have a MARCELO cardioversion with Dr. Carvajal in near future. Pt's loan review officer is Eren. Tele demonstrates to be NSR. Input from cardio appreciated. He had a catheter ablation June 2020.
Possible UTI on Levaquin
On 11/03 Ur micro demonstrated Enterococcus sens to Levaquin
Blood Cx 11/17 NTD
Hypotensive
IV NS given, 3 units of blood has been given, will order 1 unit to be given now 11/19. Will order Levophed if bp drops below 90 sys to be given. Reviewed with nursing
IDDM
continue standing Lantus, but change ac insulin to SSI
glu has been well controlled at 141-200 since admission
a1c 5.4%
Diarrhea
stool for C.Diff negative, concern as pt has been on abx, only had one episode of diarrhea today
P: admit IMU
cardio and Urology consults noted and appreciated
Per wound care large full-thickness chronic ulcer on the back, pink friable easily bleeds irregular border does not appear infected. Wound care believes this could be potentially a malignancy and recommending dermatology follow-up as an outpatient.
Full code
Anticipated Discharge: > 48 hours
Subjective/Interval History
-
Date of Service: November 22, 2024
Seen and examined. CBI remains in. Still with hairston red urine
Objective Data
-
Labs:
Laboratory Results
11/22/24
05:55
WBC 8.1
Hgb 8.7 L
Hct 25.3 L
Plt Count 129 L D
Sodium 134 L
Potassium 4.0
Chloride 107
Carbon Dioxide 16 L
BUN 12
Creatinine 1.0
Glucose 159 H
Calcium 8.2 L
Vital Signs:
Vital Signs
Temp Pulse Resp BP Pulse Ox
97.9 F 78 17 136/82 96
11/22/24 07:15 11/22/24 14:00 11/22/24 14:00 11/22/24 13:30 11/22/24 14:00
I&O
11/21/24 11/22/24 11/23/24
06:59 06:59 06:59
Intake Total 2775 / 2775 1080 / 1080
Output Total 3250 / 3250 2555 / 2555 300 / 300
Balance -475 / -475 -1475 / -1475 -300 / -300
--- NOTE | 2024-11-22 16:20 | PTCARENOTE ---
PT came out of OR with Levo running @ 8 mcg/min, received from floor @ 2 mcg/min, parameters still within IMU protocols, Dr Nickerson @ bedside, 3 way cath not draining, large clot removed, now draining red punch colored urine
[2024-11-22] MEDS: SUBLIMAZE 50 MCG IV (16:35)
[2024-11-22] MEDS: FERRLECIT 110 MG IV (17:12)
--- NOTE | 2024-11-22 17:56 | CM ---
Patient who is s/p OR today for TURBT with 3 way catheter. Room air. Receiving Levophed gtt, IVF, PO Abx. Seen by wound care nurse- recommend VN for wound care back. PT 11/21 recommends HH vs none. OT 11/21 recommendation TBD.
CM continuing to follow for d/c needs.
Plan offer VN to patient for wound care and PT.
Plan home possibly with VN.
--- NOTE | 2024-11-22 18:00 | PTCARENOTE ---
Patient recevied from PACU, went to OR with running CBI. CBI now restarted at bag 1 while in OR. Levo @ 2mcg was maintained upon going to OR and patient was received on Levo @ 8mcg, will wean as tolerated. Dinner ordered.
[2024-11-22] MEDS: DITROPAN 5 MG PO (20:17)
[2024-11-22] MEDS: VALIUM INJECTION 2 MG IV (21:09)
[2024-11-22] MEDS: LANTUS 0.32 UNITS SC (21:33)
[2024-11-22 21:45] LABS: Glucose - Point of Care 261 mg/dl (70-99)
[2024-11-22] MEDS: LEVOPHED 250 IV (23:07)
--- NOTE | 2024-11-22 23:16 | PTCARENOTE ---
Received pt from [facility]. Pt AAOx3, able to make needs known. C/o bladder spasms. PO Ditropan given with no relief, IV Valium given. Pt reporting decrease in spasms after Valium. CBI running, draining light pink urine. Levo gtt@8mcg/min through
R midline to keep SBP >90. Scheduled lopressor held d/t BP not within admin parameters. NSS@80ml/hr through R FA. Pt resting comfortably in bed at this time. Care ongoing.
[2024-11-23] VITALS (32 sets, daily range): BP systolic 76–141; BP diastolic 33–123; BMI 26.7
[2024-11-23] MEDS: DILAUDID 0.25 MG IV (01:03)
--- NOTE | 2024-11-23 01:20 | PTCARENOTE ---
pt with frequent bladder spasms, medicated per MAR. reyes draining clear pink urine. notified BIOLOGICAL CHEMIST- advised to hand irrigate. IV dilaudid given x1 for pain. many clots evacuated, pt states feeling better after irrigating. CBI running fast. care
ongoing.
[2024-11-23 04:35] LABS: Hemoglobin 8.6 g/dL (13.0-18.0); Mean Corp Hgb Conc. 33.1 g/dL (33.0-37.0); Mean Corpuscular Hgb 29.4 pg (27.0-31.0); Mean Corpuscular Volume 88.7 fL (80.0-94.0); Mean Platelet Volume 9.6 fL (7.4-10.4); Platelet Count 227 10^3/uL (130-400); Red Blood Cell Count 2.93 10^6/uL (4.70-6.10); Red Cell Dist. Width 15.2 % (11.5-14.5); White Blood Cell Count 13.3 10^3/uL (4.8-10.8)
[2024-11-23 04:51] LABS: Blood Urea Nitrogen 11 mg/dl (9-20); Calcium 7.8 mg/dl (8.4-10.2); Carbon Dioxide 19 mmol/L (22-30); Chloride 105 mmol/L (98-107); Estimated Creatinine Clearance 64 ml/min; Glucose 172 mg/dl (70-99); Sodium 134 mmol/L (135-145); eGFR > 60.00
[2024-11-23] MEDS: LOPRESSOR 12.5 MG PO ×2 (07:46→20:50)
[2024-11-23] MEDS: LEVAQUIN 500 MG PO (07:47)
--- NOTE | 2024-11-23 07:58 | PTCARENOTE ---
Pt AAOx3 having bladder spasms. 3 way reyes hand irrigated with small clot removed. Pt states he feels better. Levo continues at 5 , NSS at 80 hr.
[2024-11-23 08:14] LABS: Glucose - Point of Care 167 mg/dl (70-99)
--- NOTE | 2024-11-23 08:49 | W.PN.ONC2 ---
Today's Communication / Plan
-
follow for pathology
medical oncology follow up will be arranged upon discharge
Impression
Impression
hemorrhagic shock
Hematuria. no evidence of coagulopathy
large papillary bladder tumor s/p cystoscopy, clot evacuation, TURBT (>7 cm resected -subtotal resection) 11/22
Plan
Plan
DOAC on hold for hematuria
Tranexamic acid contraindicated in setting of urinary bleeding. Additionally, patient has atrial fibrillation and is at risk of stroke with anticoagulation on hold. Use of tranexamic acid does increase the risk of thromboembolic complications.
If brisk bleeding continues, intravesical tranexamic acid, 500 mg, would be an option.
will follow for pathology
Subjective/Objective
Subjective
Hgb stable 8.6g/dL
hematuria improved, continues CBI
Vital Signs:
Vital Signs
Temp Pulse Resp BP Pulse Ox
100.5 F H 81 19 98/78 94
11/23/24 07:37 11/23/24 08:00 11/23/24 08:00 11/23/24 08:00 11/23/24 08:00
Lab Results:
Laboratory Data
WBC 13.3 10^3/uL (4.8-10.8) H 11/23/24 04:06
Hgb 8.6 g/dL (13.0-18.0) L 11/23/24 04:06
Plt Count 227 10^3/uL (130-400) D 11/23/24 04:06
PT 14.3 Sec (11.4-14.6) 11/20/24 18:07
INR 1.08 11/20/24 18:07
APTT 35.4 Sec (23.4-35.0) H 11/20/24 18:07
eGFR > 60.00 11/23/24 04:06
Physical Exam
General: Well Developed and Well Nourished
HEENT: Moist Mucous Membranes; Negative Jaundice
Cardiology: Normal Sinus Rhythm, S1 and S2
Pulmonary: Clear
GI: Soft
Genito-Urinary: Sifuentes with improving hematuria
Extremities: No C/C/E
Neurology: Non Focal
Skin: Warm and Dry
[2024-11-23] MEDS: NOVOLOG FLEXPEN-MODERATE RESISTANCE 1 UNITS SC ×2 (09:15→17:33)
--- NOTE | 2024-11-23 10:00 | W.PN.CD ---
Today's Communication / Plan
-
-Please resume Eliquis with ok with Urology and Medicine
I will sign off and return at your request
Impression / Plan
-
Severe anemia from acute blood loss/bleeding
- So far 5 U PRBC have been transfused and Hgb now 8.7
- Less hematuria
BP is at baseline now in the mid 90s
-but still requiring levophed, wean as able
Pathologic severe hematuria
- Operative Findings:
1. Large (>7 cm) broad-based bladder tumor encompassing near entirety of right lateral bladder wall.
2. Subtotal resection (>90% resected) performed due to broad base, operative time, and hypotension on Levophed under GETA.
3. Satisfactory hemostasis on final cystoscopy.
Hx of persistent AFib and AFlutter
- Ablation 06/24/2020
- Suspected recurrence and was planned to have MARCELO/DCCV, but back in sinus spontaneously
- [id number] is at least 4 (DM, HTN, age1, vascular disease)--Please resume Eliquis with ok with Urology and Medicine
HTN
DM, type 2
Carotid vascular disease/subclavian stenosis
Subjective:
No CP or palps, no dizziness, 3 large clots last night
Data:
Echo 06/07/2023: LVEF 65-70%, AoV sclerosis, Asc Ao 3.9 cm
Felicia Nuc Stress 06/2019: Small/medium area of mild/mod fixed defects inf and apical most c/w soft tissue attenuation
.
Physical Exam
Vital Signs/Labs
Vital Signs
Temp Pulse Resp BP Pulse Ox
100.5 F H 81 19 98/78 96
11/23/24 07:37 11/23/24 08:00 11/23/24 08:00 11/23/24 08:00 11/23/24 09:42
01/11/23/24 11/24/24
06:59 06:59 06:59
Actual Weight 82 kg 82 kg
11/23/24 04:06
11/23/24 04:06
PT 14.3 Sec (11.4-14.6) 11/20/24 18:07
INR 1.08 11/20/24 18:07
APTT 35.4 Sec (23.4-35.0) H 11/20/24 18:07
11/17/24
14:11
[id number] Pept 130
Physical Exam
Constitutional: No acute distress
Cardiovascular: Rhythm & rate is regular, Pedal edema is absent, JVD pressure is normal, Systolic murmur absent and Diastolic murmur absent
Respiratory: Respiratory effort normal, Lungs clear to auscul., Wheeze Absent, Crackles Absent and Rhonchi Absent
Neuro/Psych: AO x 3
Data Reviewed
-
Date of Service: November 23, 2024
Medical Decision Making: Review of Case with other Provider (Dr Matthias Gay if able I will sign off)
EKG: Other (tele nsr)
--- NOTE | 2024-11-23 10:19 | PHA.VAN.IN ---
Assessment
- Assessment
Renal Function: Appears similar to baseline
Concomitant Antimicrobials: cefepime, levofloxacin
AUC Dosing Plan
- Dosing Variables
Dosing Weight (kg): 82
Dosing CrCl (ml/min): 64-71
Vd coefficient (L/kg): 0.7
- Empiric Dosing
Maintenance Regimen: Vanc 750mg Q12H - give first dose now then 1800 in lieu of loading dose
Estimated AUC (mcg*h/mL): 426 - 467
Estimated Peak (mcg*h/mL): 24.5 - 26.2
Estimated Trough (mcg/ml): 12.2 - 13.9
Estimated Half Life (H): 10.9 - 12
- Monitoring
No levels ordered at this time: consider levels in next few days
Pharmacokinetics Vancomycin I
- -
Patient Age: 69
Patient Sex: Male
Vancomycin Day #: 1
Indication: Genito-Urinary Tract
Requesting Provider: Dr. Arturo Rizzo
Pertinent Antimicrobial Allergies:
NKDA
Height / Weight:
Height 5 ft 9 in
Actual Weight 82 kg
Pertinent Past Medical History: DM
- Vital Signs / Lab Results
Temp Pulse Resp BP Pulse Ox
100.5 F H 77 15 88/55 96
11/23/24 07:37 11/23/24 10:00 11/23/24 10:00 11/23/24 10:00 11/23/24 10:07
Lab Results - Hematology
11/21/24 11/22/24 11/23/24
03:56 05:55 04:06
WBC 12.0 H 8.1 13.3 H
Lab Results - Chemistry
11/21/24 11/22/24 11/23/24
03:56 05:55 04:06
BUN 12 12 11
Creatinine 1.0 1.0 1.1
Estimated Creat Clear 71 71 64
Microbiology Results
11/17/24 18:12 Blood Culture - Final
Blood/Venous No Growth - Final Report
11/17/24 18:12 Blood Culture - Final
Blood/Venous No Growth - Final Report
[2024-11-23] MEDS: NSS 1000 IV (11:20)
[2024-11-23] MEDS: VANCOCIN 150 IV ×2 (11:21→17:26)
[2024-11-23] MEDS: VALIUM INJECTION 2 MG IV (11:32)
--- NOTE | 2024-11-23 11:58 | PTCARENOTE ---
Pt yelling out in pain from CBI hand irrigated cath with no return clot Valiu given as ordered . CBI runnong as ordered'
[2024-11-23] MEDS: MAXIPIME 1000 MG IV ×2 (12:08→20:50)
[2024-11-23] MEDS: STERILE WATER FOR INJECTION 10 ML IV ×2 (12:08→20:50)
[2024-11-23 12:45] LABS: Glucose - Point of Care 202 mg/dl (70-99)
[2024-11-23] MEDS: NOVOLOG FLEXPEN-MODERATE RESISTANCE 3 UNITS SC (12:51)
[2024-11-23] MEDS: FERRLECIT 110 MG IV (13:40)
--- NOTE | 2024-11-23 15:57 | W.PN.HOSP.TC ---
Addendum entered and electronically signed by Saqib Rizzo MD 11/23/24 16:48:
Hematuria is related to/associated with bladder tumor and exacerbated by Eliquis
Metabolic acidosis
Original Note:
Today's Communication/Plan
-
Assessment / Plan
Assessment / Plan
NAD
Scleral Anicteric
MMM
No JVD
CTABL
RRR, S1/S2
Soft, NT, ND, BS+
CBI light pink, transparent
Right back upper mid clavicular 3�by 2 inch ulcerated lesion that appears malignant in etiology
Warm, Dry
AAOx3
Calm
Gross Hematuria secondary to bladder tumor
-S/p CBI
-Eliquis held
-CT urogram ordered
-S/p TURBT on 11/22/2024, urology will have to go back after 3 to 4 weeks to shave rest of tumor off as there was concern for bladder rupture if any more of the tumor was taken off.
--Follow-up pathology
-Evaluated by oncology
Hemorrhagic shock
-Acute blood loss anemia precipitating this shock
-On Levophed titrate as tolerated
-Keep MAP greater than 65
-Keep hemoglobin greater than 7 however if actively bleeding would continue to transfuse
-Hematology following
Anemia�normocytic
-In the setting of hematuria
-Transfuse for hemoglobin less than 7 or actively bleeding/symptomatic anemia
Atrial Fibrillation
was to have a MARCELO cardioversion with Dr. Carvajal in near future. Pt's scalping machine operator is Eren. Tele demonstrates to be NSR. Input from cardio appreciated. He had a catheter ablation June 2020.
Possible UTI on Levaquin
On 11/03 Ur micro demonstrated Enterococcus sens to Levaquin
Blood Cx 11/17 NTD
Hypotensive
IV NS given, 3 units of blood has been given, will order 1 unit to be given now 11/19. Will order Levophed if bp drops below 90 sys to be given. Reviewed with nursing
IDDM
continue standing Lantus, but change ac insulin to SSI
glu has been well controlled at 141-200 since admission
a1c 5.4%
Diarrhea
stool for C.Diff negative, concern as pt has been on abx, only had one episode of diarrhea today
P: admit IMU
cardio and Urology consults noted and appreciated
Per wound care large full-thickness chronic ulcer on the back, pink friable easily bleeds irregular border does not appear infected. Wound care believes this could be potentially a malignancy and recommending dermatology follow-up as an outpatient.
Full code
Anticipated Discharge: > 48 hours
Subjective/Interval History
-
Date of Service: November 23, 2024
Seen and examined. No new complaints. No acute overnight events.
Objective Data
-
Labs:
Laboratory Results
11/23/24
04:06
WBC 13.3 H
Hgb 8.6 L
Hct 26.0 L
Plt Count 227 D
Sodium 134 L
Potassium 4.0
Chloride 105
Carbon Dioxide 19 L
BUN 11
Creatinine 1.1
Glucose 172 H
Calcium 7.8 L
Vital Signs:
Vital Signs
Temp Pulse Resp BP Pulse Ox
99.0 F 82 19 137/116 94
11/23/24 15:52 11/23/24 14:00 11/23/24 14:00 11/23/24 14:00 11/23/24 14:00
I&O
11/22/24 11/23/24 11/24/24
06:59 06:59 06:59
Intake Total 2520 / 2520 2980 / 2980 260 / 260
Output Total 2555 / 2555 2150 / 2150
Balance -35 / -35 830 / 830 260 / 260
[2024-11-23 17:31] LABS: Glucose - Point of Care 188 mg/dl (70-99)
--- NOTE | 2024-11-23 17:49 | PTCARENOTE ---
Wound care done on L back wound alginate 4x4 and medi pore tape
[2024-11-23] MEDS: LEVOPHED 250 IV (20:50)
[2024-11-23] MEDS: LANTUS 0.32 UNITS SC (21:15)
[2024-11-23 21:23] LABS: Glucose - Point of Care 260 mg/dl (70-99)
--- NOTE | 2024-11-23 22:00 | PTCARENOTE ---
Pt AAOx3. At time pt c/o bladder pain and spasms. Pt CBI was irrigated and multiple clots/ sediments came out. Pt urine is a pink clear output and pain was relieved after irrigations. Pt has been having multiple green liquid stool. Rectal trumpet
placed and pt was able to tolerate it. Assessment done and charted. Cont w/ tx plan
[2024-11-24] VITALS (27 sets, daily range): BP systolic 91–140; BP diastolic 34–95; BMI 27.3
[2024-11-24] MEDS: NSS 1000 IV ×2 (00:05→12:15)
[2024-11-24] MEDS: TUMS CHEWABLE TABLET 400 MG PO ×4 (03:04→21:30)
[2024-11-24] MEDS: STERILE WATER FOR INJECTION 10 ML IV ×3 (04:33→20:22)
[2024-11-24] MEDS: MAXIPIME 1000 MG IV ×3 (04:33→20:22)
[2024-11-24 05:14] LABS: Hemoglobin 9.4 g/dL (13.0-18.0); Mean Corp Hgb Conc. 33.6 g/dL (33.0-37.0); Mean Corpuscular Hgb 29.9 pg (27.0-31.0); Mean Corpuscular Volume 89.2 fL (80.0-94.0); Mean Platelet Volume 9.7 fL (7.4-10.4); Platelet Count 251 10^3/uL (130-400); Red Blood Cell Count 3.14 10^6/uL (4.70-6.10); Red Cell Dist. Width 14.8 % (11.5-14.5); White Blood Cell Count 12.5 10^3/uL (4.8-10.8)
[2024-11-24 05:33] LABS: Blood Urea Nitrogen 14 mg/dl (9-20); Calcium 8.5 mg/dl (8.4-10.2); Carbon Dioxide 20 mmol/L (22-30); Chloride 104 mmol/L (98-107); Estimated Creatinine Clearance 71 ml/min; Glucose 187 mg/dl (70-99); Potassium 3.8 mmol/L (3.5-5.1); Sodium 134 mmol/L (135-145); eGFR > 60.00
[2024-11-24] MEDS: VANCOCIN 150 IV ×2 (05:58→17:42)
[2024-11-24] MEDS: LOPRESSOR 12.5 MG PO ×2 (07:26→20:24)
[2024-11-24] MEDS: LEVAQUIN 500 MG PO (07:29)
--- NOTE | 2024-11-24 07:47 | W.PN.URO.CBU ---
Today's Communication / Plan
-
Wean CBI through day
Clamp trial @0600 in AM (11/25) - planned voiding trial before d/c
Wean pressors per IMU/Hospitalist - BPs improved
No indication for PRBC transfusion per H/H
Continue holding Eliquis
Plan for 2nd look TURBT in 4 weeks
Discussed plan of care w/ patient.
D/w RN.
D/w Hospitalist.
Assessment / Plan
-
Patient Diagnosis:
Gross hematuria
Acute blood loss anemia
Massive bladder tumor (>7 cm)
11/22: s/p TURBT and clot evacuation
HDS - SBP 140s this AM
Minimal Levophed drip - weaning
Hgb >9 today (uptrending 48 hrs post-op).
Cr WNL
CT Urogram =>6 cm bladder tumor emanating from right bladder wall in addition to suspected organized clot burden.
Bilateral kidneys and ureters normal.
Diagnosis
-
Date of Service: November 24, 2024
-
Patient Diagnosis:
Gross hematuria
Acute blood loss anemia
Massive bladder tumor (>7 cm)
11/22: s/p TURBT and clot evacuation
Subjective
-
Urine CRYSTAL CLEAR in tubing on minimal drip CBI.
Denies bladder spasms.
Levophed requirement minimal this AM.
Required irrigation o/n by RN to clear clot from catheter tip.
Objective
-
Vital Signs
Temp Pulse Resp BP Pulse Ox
99.7 F 72 16 140/41 96
11/24/24 07:17 11/24/24 07:26 11/24/24 06:00 11/24/24 07:26 11/24/24 06:00
Intake and Output
11/23/24 11/24/24 11/25/24
06:59 06:59 06:59
Intake Total 2980 / 2980 2550 / 2550
Output Total 2150 / 2150 3450 / 3450
Balance 830 / 830 -900 / -900
Intake:
Oral fluids 820 / 820 120 / 120
IV fluids (Total) 19090 1919
IV piggybacks 250 / 250 510 / 510
Output:
True Urine Output from CBI 2150 / 2150 2700 / 2700
True urine output from hand 750 / 750
irrigation
Laboratory Results
11/24/24 04:40
11/24/24 04:40
Physical Exam
-
General - well developed, well nourished, no acute distress
Abdomen - soft, non-tender, non-distended
Genitalia - normal, 22Fr 3-way catheter w/ clear urine in tubing, minimal drip rate
Skin - warm & dry with no rash
Neuro - AOx3, no motor deficits
Extremities - no clubbing, no cyanosis, no edema
Care Review
Data Reviewed
Discussed with: Hospitalist and Nursing
CT Scan: Report Pers Reviewed and Image Pers Reviewed
Total Time Spent with Patient (in minutes): 35
--- NOTE | 2024-11-24 07:59 | PHA.VAN.FU ---
Vancomycin Assessment / Plan
- Assessment
Renal Function: Stable
WBC's are: Trending Down
In the past 24 hrs, patient has been: Afebrile
Concomitant Antimicrobials: cefepime, levofloxacin
- Dosing Plan
Continue: Vanc 750mg Q12H
- Monitoring Plan
No level(s) ordered at this time: consider levels in next few days
- Follow Up
Pharmacy will continue to follow.
Vancomycin Follow UP
- -
Patient Age: 69
Patient Sex: Male
Vancomycin Day #: 2
Indication: Genito-Urinary Tract
Requesting Provider: Dr. Arturo Rizzo
Pertinent Antimicrobial Allergies:
NKDA
Height / Weight:
Height 5 ft 9 in
Actual Weight 83.9 kg
Pertinent Past Medical History: DM
- Vital Signs / Lab Results
Temp Pulse Resp BP Pulse Ox
99.7 F 72 16 140/41 96
11/24/24 07:17 11/24/24 07:26 11/24/24 06:00 11/24/24 07:26 11/24/24 06:00
Lab Results - Hematology
11/22/24 11/23/24 11/24/24
05:55 04:06 04:40
WBC 8.1 13.3 H 12.5 H
Lab Results - Chemistry
11/22/24 11/23/24 11/24/24
05:55 04:06 04:40
BUN 12 11 14
Creatinine 1.0 1.1 1.0
Estimated Creat Clear 71 64 71
Microbiology Results
11/17/24 18:12 Blood Culture - Final
Blood/Venous No Growth - Final Report
11/17/24 18:12 Blood Culture - Final
Blood/Venous No Growth - Final Report
[2024-11-24 08:14] LABS: Glucose - Point of Care 231 mg/dl (70-99)
--- NOTE | 2024-11-24 08:47 | PTCARENOTE ---
Patient received from chief environmental commitment officer. Patient resting comfortably in bed. AAO, VSS. No events noted overnight. No complaints of pain at this time. Continuing CBI, remains pink tinged without clots. Received on Levo @ 3mcg for SBP >90, will
attempt to wean as tolerated. Clamp trial @0600 in AM (11/25) - planned voiding trial before d/c. Call frankel in reach.
[2024-11-24] MEDS: NOVOLOG FLEXPEN-MODERATE RESISTANCE 2 UNITS SC (09:49)
[2024-11-24 12:44] LABS: Glucose - Point of Care 174 mg/dl (70-99)
[2024-11-24] MEDS: NOVOLOG FLEXPEN-MODERATE RESISTANCE 1 UNITS SC ×2 (12:52→17:41)
--- NOTE | 2024-11-24 14:12 | W.PN.HOSP.TC ---
Today's Communication/Plan
-
Assessment / Plan
Assessment / Plan
NAD
Scleral Anicteric
MMM
No JVD
CTABL
RRR, S1/S2
Soft, NT, ND, BS+
CBI light pink, transparent
Right back upper mid clavicular 3�by 2 inch ulcerated lesion that appears malignant in etiology
Warm, Dry
AAOx3
Calm
Gross Hematuria secondary to bladder tumor
-S/p CBI, planning to clamp today per urology and hopefully to remove Sifuentes tomorrow
-Eliquis held and will continue to hold until cleared by urology to resume
-CT urogram ordered
-S/p TURBT on 11/22/2024, urology will have to go back after 3 to 4 weeks to shave rest of tumor off as there was concern for bladder rupture if any more of the tumor was taken off.
--Follow-up pathology
-Evaluated by oncology
Hemorrhagic shock
-Acute blood loss anemia precipitating this shock
-On Levophed titrate as tolerated
-Keep MAP greater than 65
-Keep hemoglobin greater than 7 however if actively bleeding would continue to transfuse
-Hematology following
Anemia�normocytic
-In the setting of hematuria
-Transfuse for hemoglobin less than 7 or actively bleeding/symptomatic anemia
Diarrhea
Rectal trumpet placed
Will check stool studies, if negative start lkoeperarmide
Atrial Fibrillation
was to have a MARCELO cardioversion with Dr. Carvajal in near future. Pt's optical effects layout person is Eren. Tele demonstrates to be NSR. Input from cardio appreciated. He had a catheter ablation June 2020.
Possible UTI on Levaquin
On 11/03 Ur micro demonstrated Enterococcus sens to Levaquin
Blood Cx 11/17 NTD
Hypotensive
IV NS given, 3 units of blood has been given, will order 1 unit to be given now 11/19. Will order Levophed if bp drops below 90 sys to be given. Reviewed with nursing
IDDM
continue standing Lantus, but change ac insulin to SSI
glu has been well controlled at 141-200 since admission
a1c 5.4%
Diarrhea
stool for C.Diff negative, concern as pt has been on abx, only had one episode of diarrhea today
P: admit IMU
cardio and Urology consults noted and appreciated
Per wound care large full-thickness chronic ulcer on the back, pink friable easily bleeds irregular border does not appear infected. Wound care believes this could be potentially a malignancy and recommending dermatology follow-up as an outpatient.
Full code
Anticipated Discharge: > 48 hours
Subjective/Interval History
-
Date of Service: November 24, 2024
Seen and examined. No new complaints. No acute overnight events.
Objective Data
-
Labs:
Laboratory Results
11/24/24
04:40
WBC 12.5 H
Hgb 9.4 L
Hct 28.0 L
Plt Count 251
Sodium 134 L
Potassium 3.8
Chloride 104
Carbon Dioxide 20 L
BUN 14
Creatinine 1.0
Glucose 187 H
Calcium 8.5
Vital Signs:
Vital Signs
Temp Pulse Resp BP Pulse Ox
98.8 F 87 16 119/66 94
11/24/24 11:26 11/24/24 12:00 11/24/24 12:00 11/24/24 12:00 11/24/24 12:00
I&O
11/23/24 11/24/24 11/25/24
06:59 06:59 06:59
Intake Total 2980 / 2980 2550 / 2550
Output Total 2150 / 2150 3450 / 3450 1000 / 1000
Balance 830 / 830 -900 / -900 -1000 / -1000
[2024-11-24] MEDS: PROTONIX 40 MG PO (14:37)
--- NOTE | 2024-11-24 16:57 | PTOTSP ---
Physician: Please provide restart PT and OT orders to resume therapy. Thank you.
[2024-11-24 17:50] LABS: Glucose - Point of Care 170 mg/dl (70-99)
[2024-11-24] MEDS: LANTUS 0.32 UNITS SC (21:31)
[2024-11-24 21:38] LABS: Glucose - Point of Care 217 mg/dl (70-99)
[2024-11-24] MEDS: POLYSPORIN/DOUBLE ANTIBIOTIC 1 APPLIC TOPICAL (23:05)
[2024-11-25] VITALS (16 sets, daily range): BP systolic 83–120; BP diastolic 32–75; BMI 26.0
[2024-11-25] MEDS: NSS 1000 IV (00:38)
[2024-11-25] MEDS: VALIUM INJECTION 2 MG IV (00:38)
[2024-11-25] MEDS: STERILE WATER FOR INJECTION 10 ML IV ×2 (04:55→12:43)
[2024-11-25] MEDS: MAXIPIME 1000 MG IV ×2 (04:55→12:44)
[2024-11-25] MEDS: VANCOCIN 150 IV (05:33)
[2024-11-25 05:42] LABS: Hematocrit 29.5 % (39.0-52.0); Hemoglobin 9.6 g/dL (13.0-18.0); Mean Corp Hgb Conc. 32.5 g/dL (33.0-37.0); Mean Corpuscular Hgb 29.2 pg (27.0-31.0); Mean Corpuscular Volume 89.7 fL (80.0-94.0); Mean Platelet Volume 9.5 fL (7.4-10.4); Platelet Count 269 10^3/uL (130-400); Red Blood Cell Count 3.29 10^6/uL (4.70-6.10); Red Cell Dist. Width 14.6 % (11.5-14.5); White Blood Cell Count 13.6 10^3/uL (4.8-10.8)
[2024-11-25 06:06] LABS: Blood Urea Nitrogen 17 mg/dl (9-20); Calcium 8.8 mg/dl (8.4-10.2); Carbon Dioxide 19 mmol/L (22-30); Chloride 106 mmol/L (98-107); Estimated Creatinine Clearance 71 ml/min; Glucose 162 mg/dl (70-99); Potassium 4.3 mmol/L (3.5-5.1); Sodium 137 mmol/L (135-145); eGFR > 60.00
--- NOTE | 2024-11-25 06:15 | PTCARENOTE ---
Pt AAOx3. Assesmment done and charted. C/o rectal pressure and rectal tube taken off. Pt's CBI was Calmp at 0600. SBP has been >90. Will continue to monitor.
--- NOTE | 2024-11-25 06:38 | W.PN.URO.CBU ---
Today's Communication / Plan
-
start flomax
observe off CBI
Assessment / Plan
-
Patient Diagnosis:
Gross hematuria
Acute blood loss anemia
Massive bladder tumor (>7 cm)- s/p TURBT
pt improved
hgb stable
cbi off- observe for hematuria
with BP improved- start flomax
continue to hold eliquis
plan would be to watch for hematuria over next 24-48hrs- then consider reyes removal on wednesday for TOV- but pt may need to be discharged with cath
I explained plan to pt as outlined by dr kahn- he was under the impression that he was being discharged today- explained why this is not advised given degree of bleeding and size of tumor and risks of recurrent bleed
Diagnosis
-
Date of Service: November 25, 2024
-
Patient Diagnosis:
Gross hematuria
Acute blood loss anemia
Massive bladder tumor (>7 cm)
11/22: s/p TURBT and clot evacuation
Subjective
-
pt stable
off pressors with good BP
hgb stable
urine light pink on minimal cbi- now clamped
Objective
-
Vital Signs
Temp Pulse Resp BP Pulse Ox
98.6 F 82 13 120/70 97
11/25/24 03:34 11/25/24 06:25 11/25/24 06:25 11/25/24 06:25 11/25/24 06:25
Intake and Output
11/23/24 11/24/24 11/25/24
06:59 06:59 06:59
Intake Total 2980 / 2980 2550 / 2550 2790 / 2790
Output Total 2150 / 2150 3450 / 3450 3450 / 3450
Balance 830 / 830 -900 / -900 -660 / -660
Intake:
Oral fluids 820 / 820 120 / 120 720 / 720
IV fluids (Total) 1909
IV piggybacks 250 / 250 510 / 510 150 / 150
Output:
Liquid stool amount 2099
Rectum 2099
True Urine Output from CBI 2150 / 2150 2700 / 2700 1350 / 1350
True urine output from hand 750 / 750
irrigation
Laboratory Results
11/25/24 05:14
11/25/24 05:14
Physical Exam
-
General -no acute distress
Abdomen - soft, non-tender
Genitalia - normal- [address]
[2024-11-25 07:47] LABS: Glucose - Point of Care 206 mg/dl (70-99)
[2024-11-25] MEDS: PROTONIX 40 MG PO (08:27)
[2024-11-25] MEDS: LOPRESSOR 12.5 MG PO (08:27)
[2024-11-25] MEDS: LEVAQUIN 500 MG PO (08:27)
[2024-11-25] MEDS: FLOMAX 0.4 MG PO (08:27)
[2024-11-25] MEDS: POLYSPORIN/DOUBLE ANTIBIOTIC 1 APPLIC TOPICAL ×2 (08:31→21:19)
--- NOTE | 2024-11-25 08:40 | PHA.VAN.FU ---
Vancomycin Assessment / Plan
- Assessment
Renal Function: Stable
WBC's are: Trending Up
In the past 24 hrs, patient has been: Afebrile
Concomitant Antimicrobials: CEFEPIME, LEVOFLOXACIN
- Dosing Plan
Continue: VANCO 750MG Q12H
- Monitoring Plan
Peak Level: 11/25 @2100
Trough Level: 11/26 @0530
- Follow Up
Pharmacy will continue to follow.
Vancomycin Follow UP
- -
Patient Age: 69
Patient Sex: Male
Vancomycin Day #: 3
Indication: Genito-Urinary Tract
Requesting Provider: Dr. Arturo Rizzo
Pertinent Antimicrobial Allergies:
NKDA
Height / Weight:
Height 5 ft 9 in
Actual Weight 79.7 kg
Pertinent Past Medical History: DM
- Vital Signs / Lab Results
Temp Pulse Resp BP Pulse Ox
98.6 F 76 13 114/63 97
11/25/24 03:34 11/25/24 08:27 11/25/24 06:25 11/25/24 08:27 11/25/24 06:25
Lab Results - Hematology
11/23/24 11/24/24 11/25/24
04:06 04:40 05:14
WBC 13.3 H 12.5 H 13.6 H
Lab Results - Chemistry
11/23/24 11/24/24 11/25/24
04:06 04:40 05:14
BUN 11 14 17
Creatinine 1.1 1.0 1.0
Estimated Creat Clear 64 71 71
Microbiology Results
11/24/24 10:48 C. difficile GDH Antigen & Toxins - Final
Feces/Stool Negative for toxigenic C.difficile
11/23/24 11:15 Blood Culture - Preliminary
Blood/Venous No Growth in 24 hours- Final report to follow
11/23/24 10:36 Blood Culture - Preliminary
Blood/Venous No Growth in 24 hours- Final report to follow
[2024-11-25] MEDS: NOVOLOG FLEXPEN-MODERATE RESISTANCE SC (09:34)
[2024-11-25 12:36] LABS: Glucose - Point of Care 173 mg/dl (70-99)
[2024-11-25] MEDS: NOVOLOG FLEXPEN-MODERATE RESISTANCE 1 UNITS SC ×2 (12:44→17:56)
--- NOTE | 2024-11-25 13:23 | W.PN.HOSP.TC ---
Today's Communication/Plan
-
Assessment / Plan
Assessment / Plan
NAD
Scleral Anicteric
MMM
No JVD
CTABL
RRR, S1/S2
Soft, NT, ND, BS+
CBI light pink, transparent
Right back upper mid clavicular 3�by 2 inch ulcerated lesion that appears malignant in etiology
Left wrist dorsal aspect focal point tenderness where previous IV site was, without erythema nor drainage, no pain with wrist range of motion
Warm, Dry
AAOx3
Calm
Gross Hematuria secondary to bladder tumor
-S/p CBI, planning to clamp today per urology and hopefully to remove Sifuentes tomorrow
-Eliquis held and will continue to hold until cleared by urology to resume
-CTUrogram completed
-Urology plans to speak with family and Ms/ Tami about ALS diagnosis. Also recommended to have palliative onboard.
-S/p TURBT on 11/22/2024, urology will have to go back after 3 to 4 weeks to shave rest of tumor off as there was concern for bladder rupture if any more of the tumor was taken off.
--Follow-up pathology
-Evaluated by oncology
Hemorrhagic shock
-Acute blood loss anemia precipitating this shock
-Levophed weaned off on 11/25/2024
-Keep MAP greater than 65
-Keep hemoglobin greater than 7 however if actively bleeding would continue to transfuse
Anemia�normocytic
-In the setting of hematuria
-Transfuse for hemoglobin less than 7 or actively bleeding/symptomatic anemia
Diarrhea
Improving
Atrial Fibrillation
was to have a MARCELO cardioversion with Dr. Carvajal in near future. Pt's commercial loan specialist is Eren. Tele demonstrates to be NSR. Input from cardio appreciated. He had a catheter ablation June 2020.
Possible UTI
On 11/03 Ur micro demonstrated Enterococcus sens to Levaquin
Blood Cx 11/17 NTD
Leukocytosis and hypotensive/febrile on 11/23
-On Vanc Cefe, will DC and monitor off, if febrile again and worsening white count then would resume atb and consult ID.
-BCx NGTD
IDDM
continue standing Lantus, but change ac insulin to SSI
glu has been well controlled at 141-200 since admission
a1c 5.4%
Diarrhea
stool for C.Diff negative, concern as pt has been on abx, only had one episode of diarrhea today
P: admit IMU
cardio and Urology consults noted and appreciated
Per wound care large full-thickness chronic ulcer on the back, pink friable easily bleeds irregular border does not appear infected. Wound care believes this could be potentially a malignancy and recommending dermatology follow-up as an outpatient.
Full code
Anticipated Discharge: > 48 hours
Subjective/Interval History
-
Date of Service: November 25, 2024
Seen and examined. No new complaints. No acute overnight events.
Objective Data
-
Labs:
Laboratory Results
11/25/24
05:14
WBC 13.6 H
Hgb 9.6 L
Hct 29.5 L
Plt Count 269
Sodium 137
Potassium 4.3
Chloride 106
Carbon Dioxide 19 L
BUN 17
Creatinine 1.0
Glucose 162 H
Calcium 8.8
Vital Signs:
Vital Signs
Temp Pulse Resp BP Pulse Ox
97.9 F 75 15 114/63 97
11/25/24 11:25 11/25/24 08:27 11/25/24 08:27 11/25/24 08:27 11/25/24 08:27
I&O
11/24/24 11/25/24 11/26/24
06:59 06:59 06:59
Intake Total 2550 / 2550 2790 / 2790
Output Total 3450 / 3450 3450 / 3450
Balance -900 / -900 -660 / -660
[2024-11-25 17:36] LABS: Glucose - Point of Care 196 mg/dl (70-99)
--- NOTE | 2024-11-25 18:40 | PTCARENOTE ---
Rec'd pt this AM. remains without need for CBI throughout shift. Urine remains punch color, no clots, no bladder spasm. Pt ambulated to BR for BM today. Vital signs stable, resting comfortably.
[2024-11-25] MEDS: STERILE WATER FOR INJECTION IV (20:51)
[2024-11-25] MEDS: LOPRESSOR PO (21:09)
[2024-11-25 21:39] LABS: Glucose - Point of Care 200 mg/dl (70-99)
[2024-11-25] MEDS: LANTUS 0.32 UNITS SC (21:45)
[2024-11-25] MEDS: NSS 500 IV (23:44)
[2024-11-26] VITALS (22 sets, daily range): BP systolic 88–141; BP diastolic 53–92; BMI 26.1
--- NOTE | 2024-11-26 01:28 | PTCARENOTE ---
Addendum entered by Marleen Rahman RN 11/26/24 01:50:
no leaking from around catheter assessed when Sifuentes irrigated, continue to drain clear brown urine.
Original Note:
Pt.'s SBP running 80's-90's this shift, pt. asymptomatic. 1999 Lopressor held and hospitalist ASSOCIATE PRODUCER Jolene notified, order for IVF bolus 500 ml over 5 hours obtained and hung; last BP improved at 115/61. Sifuentes catheter draining brown/old blood tinged
blood, no clots seen. Pt. states he thinks he passed some urine around catheter while having a BM; catheter irrigated with 50 ml NSS without difficulty, no clots returned, continuing to drain brown urine. Pt. resting quietly.
[2024-11-26] MEDS: STERILE WATER FOR INJECTION IV ×4 (03:10→20:13)
[2024-11-26 05:29] LABS: Hematocrit 27.3 % (39.0-52.0); Hemoglobin 9.1 g/dL (13.0-18.0); Mean Corp Hgb Conc. 33.3 g/dL (33.0-37.0); Mean Corpuscular Hgb 29.8 pg (27.0-31.0); Mean Corpuscular Volume 89.5 fL (80.0-94.0); Mean Platelet Volume 9.6 fL (7.4-10.4); Platelet Count 259 10^3/uL (130-400); Red Blood Cell Count 3.05 10^6/uL (4.70-6.10); Red Cell Dist. Width 14.5 % (11.5-14.5)
[2024-11-26 05:49] LABS: Blood Urea Nitrogen 23 mg/dl (9-20); Calcium 8.6 mg/dl (8.4-10.2); Carbon Dioxide 19 mmol/L (22-30); Chloride 106 mmol/L (98-107); Estimated Creatinine Clearance 64 ml/min; Glucose 118 mg/dl (70-99); Sodium 136 mmol/L (135-145); eGFR > 60.00
--- NOTE | 2024-11-26 05:49 | PTCARENOTE ---
BP post bolus 141/55. Pt. denies any bladder spasms/discomfort; urine clear light brown, no clots. 400 ml emptied, catheter observed to consistently drain over night.
--- NOTE | 2024-11-26 08:14 | PTCARENOTE ---
Assumed care of patient this AM. Patient AAOx3. Patient expressed his disappointment with not getting discharged yesterday. Patient had 2 BM's this morning already. Was reported by plant operator/shift supervisor RN that patient had 5 overnight. These loose stools
have been ongoing. Cdiff negative. Patient had low BP's overnight 500 ml bolus given. Urine clear light brown approximately 400 in output overnight. BP's much better. Last BP 122/65, HR 70. SR on monitor.
[2024-11-26] MEDS: NOVOLOG FLEXPEN-MODERATE RESISTANCE SC (09:05)
[2024-11-26] MEDS: PROTONIX 40 MG PO (09:06)
[2024-11-26] MEDS: LOPRESSOR 12.5 MG PO ×2 (09:09→20:07)
[2024-11-26] MEDS: FLOMAX 0.4 MG PO (09:09)
[2024-11-26] MEDS: POLYSPORIN/DOUBLE ANTIBIOTIC 1 APPLIC TOPICAL ×2 (09:11→20:07)
[2024-11-26 09:18] LABS: Glucose - Point of Care 126 mg/dl (70-99)
--- NOTE | 2024-11-26 09:30 | W.PN.URO.CBU ---
Today's Communication / Plan
-
flomax
reyes
possible reyes removl tomorrow
Assessment / Plan
-
Patient Diagnosis:
Gross hematuria
Acute blood loss anemia
Massive bladder tumor (>7 cm)- s/p TURBT
pt improved
hgb stable
cbi off- observe for hematuria
with BP improved- start flomax
continue to hold eliquis
plan would be to watch for hematuria over next 24-48hrs- then consider reyes removal on wednesday for TOV- but pt may need to be discharged with cath
I again explained plan to pt as outlined by dr kahn-
Diagnosis
-
Date of Service: November 26, 2024
-
Post Op Day:
Patient Diagnosis:
Gross hematuria
Acute blood loss anemia
Massive bladder tumor (>7 cm)
11/22: s/p TURBT and clot evacuation
Subjective
-
pt says he feels better
flomax started yesterday
urine nusrat
cr and hgb stable
Objective
-
Vital Signs
Temp Pulse Resp BP Pulse Ox
98.0 F 76 14 122/65 96
11/26/24 03:07 11/26/24 08:00 11/26/24 08:00 11/26/24 08:00 11/26/24 08:00
Intake and Output
11/25/24 11/26/24 11/27/24
06:59 06:59 06:59
Intake Total 2790 / 2790 1220 / 1220
Output Total 3450 / 3450 850 / 850
Balance -660 / -660 370 / 370
Intake:
Oral fluids 720 / 720 720 / 720
IV fluids (Total) 1920 / 1920 500 / 500
IV piggybacks 150 / 150
Output:
Liquid stool amount 2099
Rectum 2099
Urine, Reyes 850 / 850
True Urine Output from CBI 1350 / 1350
Other:
Number of unmeasured liquid
stools
Rectum 2
Laboratory Results
11/26/24 04:49
11/26/24 04:49
Review of Systems
-
Constitutional: Fatigue
Respiratory: No Symptoms
Cardiac: No Symptoms
Abdomen/GI: No Symptoms
: Other (reyes bother)
Physical Exam
-
General - no acute distress
Abdomen - soft, non-tender
Genitalia - normal- reyes in place
--- NOTE | 2024-11-26 11:46 | W.PN.HOSP.TC ---
Today's Communication/Plan
-
Awaiting final urology recommendations, potential Sifuentes removal tomorrow,
Awaiting urology recommendations to resume anticoagulation
Assessment / Plan
Assessment / Plan
NAD
Scleral Anicteric
MMM
No JVD
CTABL
RRR, S1/S2
Soft, NT, ND, BS+
CBI light pink, transparent
Right back upper mid clavicular 3�by 2 inch ulcerated lesion that appears malignant in etiology
Left wrist dorsal aspect focal point tenderness where previous IV site was, without erythema nor drainage, no pain with wrist range of motion
Warm, Dry
AAOx3
Calm
Gross Hematuria secondary to bladder tumor
--CTUrogram completed
-S/p CBI, planning to clamp today per urology and hopefully to remove Sifuentes tomorrow
-Eliquis held and will continue to hold until cleared by urology to resume
-S/p TURBT on 11/22/2024, urology will have to go back after 3 to 4 weeks to shave rest of tumor off as there was concern for bladder rupture if any more of the tumor was taken off.
--Follow-up pathology
-Evaluated by oncology
-Flomax initiated by urology
Hemorrhagic shock - resolved
-Acute blood loss anemia precipitating this shock
-Levophed weaned off on 11/25/2024
-Keep MAP greater than 65
-Keep hemoglobin greater than 7 however if actively bleeding would continue to transfuse
Anemia�normocytic
-In the setting of hematuria
-Transfuse for hemoglobin less than 7 or actively bleeding/symptomatic anemia
Atrial Fibrillation
was to have a MARCELO cardioversion with Dr. Carvajal in near future. Pt's fisher trot line is Eren. Tele demonstrates to be NSR. Input from cardio appreciated. He had a catheter ablation June 2020.
Possible UTI
On 11/03 Ur micro demonstrated Enterococcus sens. Completed Atb
Blood Cx 11/17 NGTD
Leukocytosis and hypotensive/febrile on 11/23
-On Vanc Cefe, will DC and monitor off, if febrile again and worsening white count then would resume atb and consult ID.
-BCx NGTD
IDDM
continue standing Lantus, but change ac insulin to SSI
glu has been well controlled at 141-200 since admission
a1c 5.4%
Diarrhea
stool for C.Diff negative, concern as pt has been on abx, only had one episode of diarrhea today
Per wound care large full-thickness chronic ulcer on the back, pink friable easily bleeds irregular border does not appear infected. Wound care believes this could be potentially a malignancy and recommending dermatology follow-up as an outpatient.
P: admit IMU
cardio and Urology consults noted and appreciated
Full code
Anticipated Discharge: 24 - 48 hours
Subjective/Interval History
-
Date of Service: November 26, 2024
seen and exmained .no new complaints. no acute complaints.
left wrist pain improving
Objective Data
-
Labs:
Laboratory Results
11/26/24
04:49
WBC 10.0
Hgb 9.1 L
Hct 27.3 L
Plt Count 259
Sodium 136
Potassium 4.0
Chloride 106
Carbon Dioxide 19 L
BUN 23 H
Creatinine 1.1
Glucose 118 H
Calcium 8.6
Vital Signs:
Vital Signs
Temp Pulse Resp BP Pulse Ox
98 F 76 14 122/65 96
11/26/24 07:10 11/26/24 08:00 11/26/24 08:00 11/26/24 08:00 11/26/24 08:00
I&O
11/25/24 11/26/24 11/27/24
06:59 06:59 06:59
Intake Total 2790 / 2790 1220 / 1220
Output Total 3450 / 3450 850 / 850
Balance -660 / -660 370 / 370
[2024-11-26 12:33] LABS: Glucose - Point of Care 560 mg/dl (70-99)
[2024-11-26] MEDS: NOVOLOG FLEXPEN-MODERATE RESISTANCE 1 UNITS SC (13:12)
[2024-11-26 13:17] LABS: Glucose - Point of Care 197 mg/dl (70-99)
[2024-11-26] MEDS: NOVOLOG FLEXPEN-MODERATE RESISTANCE 3 UNITS SC (17:13)
[2024-11-26 17:28] LABS: Glucose - Point of Care 236 mg/dl (70-99)
--- NOTE | 2024-11-26 17:38 | PTCARENOTE ---
At lunch time PCT checked patient blood sugar and it registered RR which was very unusual for the patient. PCT then rechecked BS and it was 198. This number however did not register into [employer] but was in the glucometer. This RN then rechecked
BS and it was 197.
[2024-11-26] MEDS: LANTUS 0.32 UNITS SC (20:07)
[2024-11-26 20:18] LABS: Glucose - Point of Care 353 mg/dl (70-99)
[2024-11-26] MEDS: NOVOLOG FLEXPEN 9 UNITS SC (20:29)
--- NOTE | 2024-11-26 20:31 | PTCARENOTE ---
Patient hs blood sugar 358- assistant corporate controller provider made aware and ordered 9 units novolog.
[2024-11-26 22:45] LABS: Glucose - Point of Care 144 mg/dl (70-99)
[2024-11-27] VITALS (32 sets, daily range): BP systolic 73–166; BP diastolic 43–97; PULSE 62–94; O2SAT 96; BMI 26.1
[2024-11-27 04:05] LABS: Hematocrit 28.7 % (39.0-52.0); Hemoglobin 9.5 g/dL (13.0-18.0); Mean Corp Hgb Conc. 33.1 g/dL (33.0-37.0); Mean Corpuscular Hgb 29.1 pg (27.0-31.0); Mean Platelet Volume 9.4 fL (7.4-10.4); Platelet Count 279 10^3/uL (130-400); Red Blood Cell Count 3.26 10^6/uL (4.70-6.10); Red Cell Dist. Width 14.2 % (11.5-14.5); White Blood Cell Count 8.4 10^3/uL (4.8-10.8)
[2024-11-27 04:28] LABS: Blood Urea Nitrogen 23 mg/dl (9-20); Calcium 8.5 mg/dl (8.4-10.2); Carbon Dioxide 20 mmol/L (22-30); Chloride 107 mmol/L (98-107); Estimated Creatinine Clearance 71 ml/min; Glucose 107 mg/dl (70-99); Sodium 138 mmol/L (135-145); eGFR > 60.00
--- NOTE | 2024-11-27 06:03 | PTCARENOTE ---
No acute events overnight. 3 way reyes draining brown clear urine. No blood clots. AM hgb 9.5. Output of 375.
--- NOTE | 2024-11-27 07:57 | W.PN.URO.CBU ---
Today's Communication / Plan
-
reyes out for TOV
Assessment / Plan
-
Patient Diagnosis:
Gross hematuria
Acute blood loss anemia
Massive bladder tumor (>7 cm)- s/p TURBT
pt improved
hgb stable
cbi off- observe for hematuria
with BP improved- start flomax
continue to hold eliquis
reyes out today for TOV- pt gabale will check later today and update plan
Diagnosis
-
Date of Service: November 27, 2024
-
Patient Diagnosis:
Gross hematuria
Acute blood loss anemia
Massive bladder tumor (>7 cm)
11/22: s/p TURBT and clot evacuation
Subjective
-
pt feels better
urine remains nusrat
on flomax
Objective
-
Vital Signs
Temp Pulse Resp BP Pulse Ox
98.1 F 66 16 91/65 95
11/27/24 03:10 11/27/24 06:00 11/27/24 06:00 11/27/24 06:00 11/27/24 06:00
Intake and Output
11/26/24 11/27/24 11/28/24
06:59 06:59 06:59
Intake Total 1220 / 1220 775 / 775
Output Total 850 / 850 1825 / 1825
Balance 370 / 370 -1050 / -1050
Intake:
Oral fluids 720 / 720 775 / 775
IV fluids (Total) 500 / 500
Output:
Urine, Reyes 850 / 850 1725 / 1725
True urine output from hand 100 / 100
irrigation
Other:
Number of unmeasured liquid
stools
Rectum 2 1
Laboratory Results
11/27/24 03:47
11/27/24 03:48
Physical Exam
-
General - no acute distress
[2024-11-27] MEDS: NOVOLOG FLEXPEN-MODERATE RESISTANCE 1 UNITS SC ×2 (08:22→12:36)
[2024-11-27] MEDS: PROTONIX 40 MG PO (08:23)
[2024-11-27] MEDS: FLOMAX 0.4 MG PO (08:23)
[2024-11-27] MEDS: POLYSPORIN/DOUBLE ANTIBIOTIC 1 APPLIC TOPICAL ×2 (08:24→20:37)
[2024-11-27 08:25] LABS: Glucose - Point of Care 150 mg/dl (70-99)
[2024-11-27] MEDS: LOPRESSOR 12.5 MG PO ×2 (08:28→20:37)
[2024-11-27 10:54] LABS: Glucose - Point of Care 198 mg/dl (70-99)
--- NOTE | 2024-11-27 11:27 | PHA.VAN.IN ---
Assessment
- Assessment
Renal Function: Appears similar to baseline
AUC Dosing Plan
- Dosing Variables
Dosing Weight (kg): 80
Dosing CrCl (ml/min): 71
Vd coefficient (L/kg): 0.7
- Empiric Dosing
Initial / Loading Dose: 2000mg - administration pending
Maintenance Regimen: Vanc 750mg Q12H starting 11/28 0600
Estimated AUC (mcg*h/mL): 436
Estimated Peak (mcg*h/mL): 25.2
Estimated Trough (mcg/ml): 12.5
Estimated Half Life (H): 10.9
- Monitoring
No levels ordered at this time: consider levels in next few days
Pharmacokinetics Vancomycin I
- -
Patient Age: 69
Patient Sex: Male
Vancomycin Day #: 1
Indication: Skin And Soft Tissue
Requesting Provider: Dr. Chappell
Pertinent Antimicrobial Allergies:
NKDA
Height / Weight:
Height 5 ft 9 in
Actual Weight 80 kg
Pertinent Past Medical History: DM
- Vital Signs / Lab Results
Temp Pulse Resp BP Pulse Ox
98.4 F 64 15 159/76 97
11/27/24 07:12 11/27/24 09:00 11/27/24 09:00 11/27/24 09:00 11/27/24 09:33
Lab Results - Hematology
11/25/24 11/26/24 11/27/24
05:14 04:49 03:47
WBC 13.6 H 10.0 8.4
Lab Results - Chemistry
11/25/24 11/26/24 11/27/24
05:14 04:49 03:48
BUN 17 23 H 23 H
Creatinine 1.0 1.1 1.0
Estimated Creat Clear 71 64 71
Microbiology Results
11/23/24 11:15 Blood Culture - Preliminary
Blood/Venous No Growth in 4 days- Final report to follow
11/23/24 10:36 Blood Culture - Preliminary
Blood/Venous No Growth in 4 days- Final report to follow
[2024-11-27] MEDS: STERILE WATER FOR INJECTION IV ×2 (11:43→20:46)
--- NOTE | 2024-11-27 11:52 | PTCARENOTE ---
Assumed care of patient at beginning of this shift from previous RN. Patient ordered polysporin to his R forearm at the site of a previous IV infiltrate. On assessment, area noted to have a cord. SHARON RN made aware on rounds and assessed. Dr Chappell
made aware; vancomycin ordered. BP low in L leg and 129/97 in R leg. He has a RUE restriction d/t midline. When asked why BP is not able to be done in L arm, patient stated that no one has been able to get a good read on that arm since his previous
bowel surgery. Dr Chappell updated and requested midline be removed and peripheral IV placed so there are no limb restrictions to taking BP. TT sent to [place]; Geetha HERRERA RN returned page and made aware. Sifuentes catheter d/c'd at 11:20 as ordered;
urinal at bedside. See worklist for full assessment and vital signs; see updated orders.
--- NOTE | 2024-11-27 11:57 | W.PN.HOSP.TC ---
Today's Communication/Plan
-
TOV
Vanco
cont to hold eliquis as per Urology note
Assessment / Plan
Assessment / Plan
69yo M with DM, Afib, HTN, massive bladder tumor s/p TURBT on 11/22/24 with postOP hematuria and hemorrhagic shock, needed 5 units PRBC transfused, hematuria resolved. Also developed L hand suppurative thrombophlebitis after IV. Line removed, started
on Vanco
A/P
#Acute blood loss anemia 2/2 hematuria, exacerbated by Eliquis and started after TURBT
#nephrolithiasis
#L renal cyt
serial CBC
Urology - CBI completed, reyes to be removed. Eliquis cont to hold until restarted by urology
#Wheeping ulcerative lesion on back
#large papillary bladder tumor
oncology follow up for biopsy
#Afib, paroxysmal
cardio followed
restart Eliquis when possible
#R hand suppurative thrombophlebitis
vanco started on 11/27/24
#right lower quadrant anterior abdominal wall hernia
Asymptomatic
#Colon CA s/p Subtotal colectomy with anastomosis in the upper pelvis
no constipation
#DM type 2
insulin SS, basal, bolus insulin, DM diet, Accuchekcs
#Hx of recent enterococcal UTI
completed Abx
#Hepatic steatosis
#hepatic cyst
#hepatic granuloma
check lipids with PCP
low fat diet
DVT ppx SCDs
Full code
I have spent at least 38min reviewing patient chart, test results, communication with consultants and direct patient care
Anticipated Discharge: 24 - 48 hours
Subjective/Interval History
-
Date of Service: November 27, 2024
Objective Data
-
Labs:
Laboratory Results
11/27/24 11/27/24
03:47 03:48
WBC 8.4
Hgb 9.5 L
Hct 28.7 L
Plt Count 279
Sodium 138
Potassium 4.0
Chloride 107
Carbon Dioxide 20 L
BUN 23 H
Creatinine 1.0
Glucose 107 H
Calcium 8.5
Vital Signs:
Vital Signs
Temp Pulse Resp BP Pulse Ox
98.4 F 64 15 159/76 97
11/27/24 07:12 11/27/24 09:00 11/27/24 09:00 11/27/24 09:00 11/27/24 09:33
I&O
11/26/24 11/27/24 11/28/24
06:59 06:59 06:59
Intake Total 1220 / 1220 775 / 775
Output Total 850 / 850 1825 / 1825
Balance 370 / 370 -1050 / -1050
Review of Systems
-
History Source: Patient
All other systems: Reviewed and negative
Constitutional: Reports No Symptoms
Physical Exam
-
General: No Apparent Distress
HEENT: Normocephalic
Respiratory: Clear to Auscultation
Cardiac: Regular Rhythm
Musculoskeletal: No Clubbing, No Cyanosis and No Edema
Neuro: Awake, Alert, Oriented and AO x 3
Psych: Calm
[2024-11-27 12:16] LABS: Glucose - Point of Care 192 mg/dl (70-99)
[2024-11-27] MEDS: VANCOCIN 540 MG IV (12:36)
--- NOTE | 2024-11-27 14:41 | CM ---
Chart reviewed
Maria d/c'ed - for voiding trial
Wound care following - recs and wound care center
PT - recs HH. Will need updated OT eval
Plan - anticipate home with VN when medically stable
--- NOTE | 2024-11-27 15:04 | VATNOTE ---
Upon rounds the pt brought up to the VAT RN that his L hand was red and painful. This RN assessed L hand and 3 in chord was noticeable. Upon looking into documentation, pt did have a PIV in L hand that was D/C'd 11/21 due to infiltration. Primary RN
aware and issue will be brought up to hospitalist. Will continue to monitor.
[2024-11-27] MEDS: NOVOLOG FLEXPEN-MODERATE RESISTANCE 3 UNITS SC (17:49)
[2024-11-27 17:57] LABS: Glucose - Point of Care 226 mg/dl (70-99)
[2024-11-27 21:55] LABS: Glucose - Point of Care 227 mg/dl (70-99)
[2024-11-27] MEDS: LANTUS 0.32 UNITS SC (22:39)
[2024-11-27 22:49] LABS: Glucose - Point of Care 229 mg/dl (70-99)
[2024-11-28] VITALS (11 sets, daily range): BP systolic 94–121; BP diastolic 39–87; BMI 25.9
--- NOTE | 2024-11-28 03:23 | PTCARENOTE ---
Pt received from monse RN. pt AAOx3. pt NSR on monitor. 96% RA. Assessment as documented. Pt voiding on the BSC, Pct assisted Pt to BSC. Call light in reach.
[2024-11-28] MEDS: ULTRAM 50 MG PO (04:46)
[2024-11-28] MEDS: STERILE WATER FOR INJECTION IV (04:46)
[2024-11-28 05:01] LABS: Hematocrit 28.9 % (39.0-52.0); Hemoglobin 9.7 g/dL (13.0-18.0)
[2024-11-28 05:25] LABS: Blood Urea Nitrogen 21 mg/dl (9-20); Calcium 8.1 mg/dl (8.4-10.2); Carbon Dioxide 20 mmol/L (22-30); Chloride 107 mmol/L (98-107); Estimated Creatinine Clearance 64 ml/min; Glucose 122 mg/dl (70-99); Potassium 3.9 mmol/L (3.5-5.1); Sodium 137 mmol/L (135-145); eGFR > 60.00
[2024-11-28] MEDS: VANCOCIN 150 IV (05:41)
--- NOTE | 2024-11-28 08:08 | W.PN.ONC2 ---
Today's Communication / Plan
-
follow for pathology
medical oncology follow up will be arranged upon discharge
Impression
Impression
hemorrhagic shock
Hematuria. no evidence of coagulopathy
large papillary bladder tumor s/p cystoscopy, clot evacuation, TURBT (>7 cm resected -subtotal resection) 11/22
Wheeping ulcerative lesion on back
left hand thrombophlebitis
Atrial fibrillation DOAC on hold
Hx Colon CA s/p Subtotal colectomy with anastomosis
Plan
Plan
DOAC on hold for hematuria
will follow for pathology
Subjective/Objective
Subjective
no new complaints
voiding to urinal, denies hematuria
Vital Signs:
Vital Signs
Temp Pulse Resp BP Pulse Ox
98.2 F 61 13 94/68 99
11/28/24 05:26 11/28/24 02:00 11/28/24 02:00 11/28/24 02:00 11/28/24 02:33
Lab Results:
Laboratory Data
WBC 8.4 10^3/uL (4.8-10.8) 11/27/24 03:47
Hgb 9.7 g/dL (13.0-18.0) L 11/28/24 04:41
Plt Count 279 10^3/uL (130-400) 11/27/24 03:47
PT 14.3 Sec (11.4-14.6) 11/20/24 18:07
INR 1.08 11/20/24 18:07
APTT 35.4 Sec (23.4-35.0) H 11/20/24 18:07
eGFR > 60.00 11/28/24 04:41
Physical Exam
General: Well Developed and Well Nourished
HEENT: Moist Mucous Membranes; Negative Jaundice
Cardiology: Normal Sinus Rhythm, S1 and S2
Pulmonary: Clear
GI: Soft
Extremities: No C/C/E
Neurology: Non Focal
Skin: Warm and Dry
--- NOTE | 2024-11-28 08:40 | PHA.VAN.FU ---
Vancomycin Assessment / Plan
- Assessment
Renal Function: Stable
In the past 24 hrs, patient has been: Afebrile
- Dosing Plan
Continue: Vanc 750mg Q12H
- Monitoring Plan
No level(s) ordered at this time: follow renal function trend
- Follow Up
Pharmacy will continue to follow.
Vancomycin Follow UP
- -
Patient Age: 69
Patient Sex: Male
Vancomycin Day #: 2
Indication: Skin And Soft Tissue
Requesting Provider: Dr. Chappell
Pertinent Antimicrobial Allergies:
NKDA
Height / Weight:
Height 5 ft 9 in
Actual Weight 79.4 kg
Pertinent Past Medical History: DM
- Vital Signs / Lab Results
Temp Pulse Resp BP Pulse Ox
97.7 F 61 13 94/68 99
11/28/24 07:05 11/28/24 02:00 11/28/24 02:00 11/28/24 02:00 11/28/24 02:33
Lab Results - Hematology
11/26/24 11/27/24
04:49 03:47
WBC 10.0 8.4
Lab Results - Chemistry
11/26/24 11/27/24 11/28/24
04:49 03:48 04:41
BUN 23 H 23 H 21 H
Creatinine 1.1 1.0 1.1
Estimated Creat Clear 64 71 64
Microbiology Results
11/27/24 11:55 Nasal Screen MRSA (PCR) - Final
Nose Staph aureus MRSA
11/23/24 11:15 Blood Culture - Preliminary
Blood/Venous No Growth in 4 days- Final report to follow
11/23/24 10:36 Blood Culture - Preliminary
Blood/Venous No Growth in 4 days- Final report to follow
Therapeutic Drug Monitoring
Vancomycin Peak Cancelled 11/25/24 21:00
Vancomycin Trough Cancelled 11/26/24 05:30
--- NOTE | 2024-11-28 08:42 | PTCARENOTE ---
Patient received from stone layout marker. Patient resting comfortably in bed. AAO, VSS. No events noted overnight. No complaints of pain at this time. Remains on room. Using bathroom vs commode. Plan for discharge today. Call frankel in reach.
--- NOTE | 2024-11-28 09:02 | W.PN.HOSP.TC ---
Today's Communication/Plan
-
dc
Assessment / Plan
Assessment / Plan
69yo M with DM, Afib, HTN, massive bladder tumor s/p TURBT on 11/22/24 with postOP hematuria and hemorrhagic shock, needed 5 units PRBC transfused, hematuria resolved. Also developed L hand suppurative thrombophlebitis after IV. Line removed, started
on Vanco, since MRSA screen positive. Passed TOV on 11/27/23, hematuria resolved, urology advised to hold Eliquis until 12/01/24 and will follow with the patient upon discharge in 2 weeks. Augmentin/Doxy will be started for L hand
thrombophlebitis/cellulitis as redness improving, no fevers and WBC WNL. Patient agreeable for self-monitoring and aware that he has to come to D if redness worsening or pain continues beyond 5 days
A/P
#Acute blood loss anemia 2/2 hematuria, exacerbated by Eliquis and started after TURBT
#nephrolithiasis
#L renal cyt
serial CBC
Urology - CBI completed, reyes to be removed. Eliquis cont to hold until restarted by urology
#Weeping ulcerative lesion on back
#large papillary bladder tumor
oncology follow up for biopsy
#Afib, paroxysmal
cardio followed
restart Eliquis when possible
#R hand thrombophlebitis of superficial vein
vanco started on 11/27/24, plan for oral Abx for 2 weeks and outpatient monitoring - patient agreeable with plan
#right lower quadrant anterior abdominal wall hernia
Asymptomatic
#Colon CA s/p Subtotal colectomy with anastomosis in the upper pelvis
no constipation
#DM type 2
insulin SS, basal, bolus insulin, DM diet, Accuchekcs
#Hx of recent enterococcal UTI
completed Abx
#Hepatic steatosis
#hepatic cyst
#hepatic granuloma
check lipids with PCP
low fat diet
DVT ppx SCDs
Full code
I have spent at least 38min reviewing patient chart, test results, communication with consultants and direct patient care
Anticipated Discharge: Today
Subjective/Interval History
-
Date of Service: November 28, 2024
Objective Data
-
Labs:
Laboratory Results
11/28/24
04:41
Hgb 9.7 L
Hct 28.9 L
Sodium 137
Potassium 3.9
Chloride 107
Carbon Dioxide 20 L
BUN 21 H
Creatinine 1.1
Glucose 122 H
Calcium 8.1 L
Vital Signs:
Vital Signs
Temp Pulse Resp BP Pulse Ox
97.7 F 61 13 94/68 99
11/28/24 07:05 11/28/24 02:00 11/28/24 02:00 11/28/24 02:00 11/28/24 02:33
I&O
11/27/24 11/28/24 11/29/24
06:59 06:59 06:59
Intake Total 775 / 775
Output Total 1825 / 1825 250 / 250
Balance -1050 / -1050 -250 / -250
Review of Systems
-
History Source: Patient
All other systems: Reviewed and negative
Physical Exam
-
General: No Apparent Distress
HEENT: Normocephalic
Respiratory: Clear to Auscultation
GI: Nontender and Nondistended
Genito-urinary: Clear Urine; Negative Bloody Urine
Musculoskeletal: No Clubbing, No Cyanosis and No Edema
Neuro: Awake, Alert, Oriented and AO x 3
Psych: Calm
[2024-11-28] MEDS: POLYSPORIN/DOUBLE ANTIBIOTIC 1 APPLIC TOPICAL (09:31)
[2024-11-28] MEDS: FLOMAX 0.4 MG PO (09:31)
[2024-11-28] MEDS: LOPRESSOR 12.5 MG PO (09:31)
[2024-11-28] MEDS: PROTONIX 40 MG PO (09:31)
--- NOTE | 2024-11-28 09:32 | W.DCSUMMARY ---
Discharge Summary
Discharge Data
Date of Admission: 11/17/24
Date of Discharge: 11/28/24
-
Pending Results: No
Hospital Course
69yo M with DM, Afib, HTN, massive bladder tumor s/p TURBT on 11/22/24 with postOP hematuria and hemorrhagic shock, needed 5 units PRBC transfused, hematuria resolved. Also developed L hand suppurative thrombophlebitis after IV. Line removed, started
on Vanco, since MRSA screen positive. Passed TOV on 11/27/23, hematuria resolved, urology advised to hold Eliquis until 12/01/24 and will follow with the patient upon discharge in 2 weeks. Augmentin/Doxy will be started for L hand
thrombophlebitis/cellulitis as redness improving, no fevers and WBC WNL. Patient agreeable for self-monitoring and aware that he has to come to [facility] if redness worsening or pain continues beyond 5 days, he was offered to stay for more doses of IV ABx
but declined. WIth absence of systemic symptoms - reasonable to aloow outpatient mgmt
I have spent at least 38min reviewing patient chart, test results, communication with consultants and direct patient care
Patient was managed for
#Acute blood loss anemia 2/2 hematuria, exacerbated by Eliquis and started after TURBT
#nephrolithiasis
#L renal cyt
#Weeping ulcerative lesion on back
#large papillary bladder tumor
#Afib, paroxysmal
#R hand thrombophlebitis of superficial vein vs cellulitis
#right lower quadrant anterior abdominal wall hernia
#Colon CA s/p Subtotal colectomy with anastomosis in the upper pelvis
#DM type 2
#Hx of recent enterococcal UTI
#Hepatic steatosis
#hepatic cyst
#hepatic granuloma
Discharge Plan
-
Patient Disposition: Home (Routine Discharge)
Discharge Diagnosis/Procedures: hematuria
Diet: Regular
Activity: As tolerated
Driving Restrictions: As prior to admission
Activity Restrictions/Additional Instructions:
Wound Care Instructions
Back: clean with soap and water, alginate, dry dressing and Medipore tape. change daily and prn drainage.
Follow up with either Dr. Lcui Silva's procedure or [facility] for biopsy of back wound.
Can also Follow up at wound care center(*If needed) call for an appointment.
Referrals:
Jim Nickerson MD [Active] - in two weeks
Diann Bell PA-C [Family Provider] -
Additional Discharge Medication Instructions: Hold liquis until 12/01/24, then start usual dose and monitor for blood in the urine
Prescriptions:
New
tamsulosin 0.4 mg Capsule
0.4 mg PO DAILY Qty: 30 0RF
pantoprazole 40 mg Tablet,Delayed Release (Dr/Ec)
40 mg PO DAILY Qty: 30 0RF
amoxicillin-pot clavulanate 875-125 mg tablet
1 tab PO Q12H Qty: 28 0RF
doxycycline hyclate 100 mg capsule
100 mg PO BID Qty: 28 0RF
Continued
metoprolol tartrate 25 MG tablet
12.5 mg PO BID
insulin aspart U-100 [Novolog FlexPen U-100 Insulin] 100 unit/mL (3 mL) Insulin Pen
13 unit SC AC Qty: 15 0RF
insulin glargine [Lantus Solostar U-100 Insulin] 100 unit/mL (3 mL) insulin pen
32 unit SC HS Qty: 15 0RF
Held
Eliquis 5 mg Tablet
5 mg PO BID Qty: 0 0RF
Hold Instructions: Resume on 12/01/24.
Discontinued
levofloxacin [Levaquin] 500 mg Tablet
500 mg PO DAILY
Discharge Orders:
Discharge Patient (As Directed); Ordered 11/28/24
Ordered By: Piter Chappell
Discharge Date and Time
Print Language: BARBADIAN
[2024-11-28 09:36] LABS: Glucose - Point of Care 123 mg/dl (70-99)
[2024-11-28] MEDS: NOVOLOG FLEXPEN-MODERATE RESISTANCE SC (09:43)
--- NOTE | 2024-11-28 10:08 | CM ---
CM reviewed chart and noted dc order
Bedside meeting with pt
VN recs by therapy and WOC
Pt declined all services
He noted he has already made a F/U appt with surgeon for his wound
IMM verbally reviewed- copy provided
Plans to drive self home
Discharge Disposition- home, no needs, declined VN
--- NOTE | 2024-11-28 12:43 | PTCARENOTE ---
Patient discharged to home. Discharge instructions and medications reviewed and all questions answered. Patient was escorted via wheel chair to main lobby. Patient left with all known belongings.
== END 2024-11-28 12:24 | disposition home or self-care (01) | DRG 668 ==
LOC: IMU 19:40
PROVIDERS: Hospitalist; Nurse Practitioner Family; Physician Assistant; Surgery; ADMITTING PHYSICIAN Internal Medicine; ATTENDING PHYSICIAN Internal Medicine; CONSULT PHYSICIAN Internal Medicine Cardiovascular Disease; CONSULT PHYSICIAN Internal Medicine Hematology & Oncology; CONSULT PHYSICIAN Specialist; EMERGENCY PHYSICIAN Student in an Organized Health Care Education/Training Program; FAMILY PHYSICIAN Physician Assistant Medical
PROC: 30233N1 Transfusion of Nonautologous Red Blood Cells into Peripheral Vein, Percutaneous Approach (ICD-10-PCS; 2024-11-17)
PROC: 0TBB8ZZ Excision of Bladder, Via Natural or Artificial Opening Endoscopic (ICD-10-PCS; 2024-11-22)
DX: C67.2 Malignant neoplasm of lateral wall of bladder (principal); R57.8 Other shock; D62 Acute posthemorrhagic anemia; E87.20 Acidosis, unspecified; D68.32 Hemorrhagic disorder due to extrinsic circulating anticoagulants; T80.1XXA Vascular complications following infusion, transfusion and therapeutic injection, initial encounter; I80.8 Phlebitis and thrombophlebitis of other sites; I10 Essential (primary) hypertension; E11.9 Type 2 diabetes mellitus without complications; I95.89 Other hypotension; R19.7 Diarrhea, unspecified; I48.0 Paroxysmal atrial fibrillation; I65.21 Occlusion and stenosis of right carotid artery; T45.515A Adverse effect of anticoagulants, initial encounter; F17.200 Nicotine dependence, unspecified, uncomplicated; E66.9 Obesity, unspecified; K43.9 Ventral hernia without obstruction or gangrene; K75.3 Granulomatous hepatitis, not elsewhere classified; K76.0 Fatty (change of) liver, not elsewhere classified; R31.0 Gross hematuria; Z79.4 Long term (current) use of insulin; Z79.01 Long term (current) use of anticoagulants; Z79.899 Other long term (current) drug therapy; Z85.828 Personal history of other malignant neoplasm of skin; Z87.440 Personal history of urinary (tract) infections; Z90.49 Acquired absence of other specified parts of digestive tract; Z68.27 Body mass index [BMI] 27.0-27.9, adult
CPT/HCPCS: 88307; 36430; 51702; 74178; 80048; 80053; 81003; 81015; 82607; 82728; 82746; 82962; 83036; 83540; 83550; 83880; 85014; 85018; 85025; 85027; 85384; 85610; 85730; 86850; 86900; 86901; 86920; 87040; 87070; 87147; 87324; 87449; 87641; 87798; 93005; 96360; 96361; 97116; 97163; 97164; 97167; 97168; 97535; 99291; J2916; P9016; Q9967

== ENCOUNTER 2025-03-12 06:13 | Day surgery (SDC) | payer OTHER, SELFPAY ==
[2025-03-12] VITALS (9 sets, daily range): BP systolic 100–128; BP diastolic 62–104
[2025-03-12] MEDS: CYSVIEW KIT 100 MG INTRAVES (08:08)
[2025-03-12 08:21] LABS: Glucose - Point of Care 345 mg/dl (70-99)
[2025-03-12] MEDS: NOVOLOG vial 10 UNITS SC (08:44)
[2025-03-12 09:56] LABS: Glucose - Point of Care 284 mg/dl (70-99)
[2025-03-12] MEDS: SYRINGE NON-PUMP 50 ML IRRIG ×2 (10:05→10:06)
[2025-03-12] MEDS: SYRINGE NON-PUMP 50 MG IRRIG ×2 (10:05→10:06)
[2025-03-12] MEDS: Pyridium 200 MG PO (11:01)
== END 2025-03-12 11:51 | disposition home or self-care (01) ==
LOC: SDS 06:13
PROVIDERS: ATTENDING PHYSICIAN Surgery
DX: C67.9 Malignant neoplasm of bladder, unspecified (principal)
CPT/HCPCS: 52240; 51720; C9738; 88307; 82962; A9589; J9201